=== PATIENT | female | born 1945 | race Caucasian/White ===

== ENCOUNTER 2017-01-24 14:28 | Emergency (ER) | payer OTHER ==
[~2017-01-24] VITALS: Wt 85.7 kg
[~2017-01-24 14:28] MED LIST: ADVAIR 250/501 EA INH; ALBUTEROL0.09 MG/A2 INH; CIPRO500 MG PO; DARVOCET N 1001 TAB PO; ENALAPRIL2.5 MG PO; NIACIN500 M1 PO; NORVASC5 MG PO; PRAVASTATIN SOD10 MG PO; PREDNISONE10 MG PO; PRILOSEC20 MG PO; PRILOSEC40 MG PO; REGLAN5 MG PO; SINGULAIR10 MG PO; TRAMADOL HCL50 MG PO; VIBRAMYCIN100 MG PO
[2017-01-24 14:54] VITALS: BP 150/83
[2017-01-24] MEDS ORDERED: HYDROCODONE BIT1 T11 PO (16:11)
== END 2017-01-24 16:12 | disposition home or self-care (01) ==
LOC: ED 14:28
DX: S83.91XA Sprain of unspecified site of right knee, initial encounter (principal); M19.90 Unspecified osteoarthritis, unspecified site; Z79.899 Other long term (current) drug therapy; X58.XXXA Exposure to other specified factors, initial encounter; Y93.89 Activity, other specified; Y92.9 Unspecified place or not applicable; Y99.9 Unspecified external cause status

== ENCOUNTER → 2017-01-26 | Outpatient (CLI) | payer OTHER ==
[~2017-01-26] MED LIST changes: +HYDROCODONE BIT1 T11 PO
[2017-01-26 16:51] LABS: BASO # 0.1 10*3/uL (0.0-0.1); BASO % 0.8 % (0.0-1.0); EOS # 0.3 10*3/uL (0.0-0.4); EOS % 3.6 % (1.0-4.0); HEMATOCRIT 37.6 % (37.0-47.0); HEMOGLOBIN 12.3 g/dl (12.0-16.0); LYMPH # 2.3 10*3/uL (1.3-4.4); LYMPH % 25.8 % (27.0-41.0); MEAN CELL VOLUME 91.7 fl (81.0-99.0); MEAN CORPUSCULAR HGB CONC 32.7 g/dl (33.0-37.0); MEAN PLATELET VOLUME 9.5 fl (9.6-12.3); MONO # 0.8 10*3/uL (0.1-1.0); MONO % 9.5 % (3.0-9.0); NEUT # 5.3 10*3/uL (2.3-7.9); NEUT % 59.8 % (47.0-73.0); PLATELET COUNT AUTOMATED 377 10*3/uL (130-400); WHITE BLOOD COUNT 8.9 10*3/uL (4.8-10.8)
== END | disposition home or self-care (01) ==
LOC: LAB 16:19
PROVIDERS: Orthopaedic Surgery
DX: M25.561 Pain in right knee (principal)

== ENCOUNTER → 2017-02-01 | Outpatient (CLI) | payer OTHER | END | disposition home or self-care (01) | LOC: LAB 14:39 | DX: K59.00 Constipation, unspecified (principal); K63.89 Other specified diseases of intestine; M16.0 Bilateral primary osteoarthritis of hip; M85.80 Other specified disorders of bone density and structure, unspecified site; M53.3 Sacrococcygeal disorders, not elsewhere classified ==

== ENCOUNTER → 2017-06-17 | Outpatient (CLI) | payer OTHER | END | disposition home or self-care (01) | LOC: MAMMO 06-10 13:00 | DX: Z12.31 Encounter for screening mammogram for malignant neoplasm of breast (principal) ==

== ENCOUNTER 2017-06-29 13:30 | Emergency (ER) | payer OTHER ==
[~2017-06-29] VITALS: Wt 81.6 kg
[2017-06-29 13:42] VITALS: BP 113/82
[2017-06-29] MEDS ORDERED: NAPROSYN500 MG PO (15:21)
== END 2017-06-29 15:00 | disposition home or self-care (01) ==
LOC: ED 13:30
DX: M19.012 Primary osteoarthritis, left shoulder (principal); Z79.899 Other long term (current) drug therapy

== ENCOUNTER → 2018-01-17 | Outpatient (CLI) | payer OTHER ==
[~2018-01-17] MED LIST changes: +NAPROSYN500 MG PO
[2018-01-17 12:37] LABS: BASO # 0.1 10*3/uL (0.0-0.1); EOS # 0.7 10*3/uL (0.0-0.4); EOS % 8.6 % (1.0-4.0); HEMATOCRIT 38.2 % (37.0-47.0); HEMOGLOBIN 12.3 g/dl (12.0-16.0); LYMPH # 2.3 10*3/uL (1.3-4.4); MEAN CELL VOLUME 95.5 fl (81.0-99.0); MEAN CORPUSCULAR HGB 30.8 pg (27.0-31.0); MEAN CORPUSCULAR HGB CONC 32.2 g/dl (33.0-37.0); MONO # 0.9 10*3/uL (0.1-1.0); MONO % 10.6 % (3.0-9.0); NEUT # 4.4 10*3/uL (2.3-7.9); NEUT % 52.6 % (47.0-73.0); PLATELET COUNT AUTOMATED 350 10*3/uL (130-400); RED CELL DISTRI WIDTH 13.8 % (0-14.5); WHITE BLOOD COUNT 8.4 10*3/uL (4.8-10.8)
[2018-01-17 12:57] LABS: ALBUMIN 3.5 gm/dl (3.1-4.5); ALKALINE PHOSPHATASE 111 U/L (45-117); BUN 9 mg/dl (7-24); CHLORIDE 107 mmol/L (98-107); CHOLESTEROL 171 mg/dL (<200); CREATININE 0.86 mg/dL (0.55-1.02); HDL CHOLESTEROL 50 mg/dl (40-60); LDL CHOLESTEROL 95 mg/dL (9-159); SGOT/AST 19 IU/L (3-35); SGPT/ALT 20 U/L (12-78); SODIUM 142 mmol/L (136-145); TOTAL PROTEIN 6.9 gm/dL (6.4-8.2); TRIGLYCERIDES 131 mg/dl (<150); VLDL CHOLESTEROL 26 mg/dL (6-40)
== END | disposition home or self-care (01) ==
LOC: LAB 11:51
PROVIDERS: Nurse Practitioner Family
DX: E78.4 Other hyperlipidemia (principal); I10 Essential (primary) hypertension

== ENCOUNTER → 2018-01-21 | Outpatient (CLI) | payer OTHER | END | disposition home or self-care (01) | LOC: MRI 13:27 | DX: M19.012 Primary osteoarthritis, left shoulder (principal); S46.912D Strain of unspecified muscle, fascia and tendon at shoulder and upper arm level, left arm, subsequent encounter; X58.XXXD Exposure to other specified factors, subsequent encounter ==

== ENCOUNTER → 2018-05-12 | Outpatient (CLI) | payer OTHER ==
[~2018-05-12] MED LIST changes: +ALBUTEROL2.5 MG/0.5 INH; -ENALAPRIL2.5 MG PO; +ENALAPRIL20 MG PO; +LEVAQUIN750 M1 PO; +NAPROXEN500 MG PO; +VITAMIN D-32000 UNIT PO
== END | disposition home or self-care (01) ==
LOC: RESCLI 14:55
DX: J44.9 Chronic obstructive pulmonary disease, unspecified (principal); I10 Essential (primary) hypertension; E78.00 Pure hypercholesterolemia, unspecified; E53.8 Deficiency of other specified B group vitamins; K21.9 Gastro-esophageal reflux disease without esophagitis; Z79.899 Other long term (current) drug therapy; Z79.82 Long term (current) use of aspirin; Z88.8 Allergy status to other drugs, medicaments and biological substances

== ENCOUNTER → 2018-06-10 | Outpatient (CLI) | payer OTHER ==
[~2018-06-10] MED LIST changes: -ALBUTEROL2.5 MG/0.5 INH; +ENALAPRIL2.5 MG PO; -ENALAPRIL20 MG PO; -LEVAQUIN750 M1 PO; -NAPROXEN500 MG PO; -VITAMIN D-32000 UNIT PO
== END ==
LOC: RESCLI 02:11
DX: I10 Essential (primary) hypertension (principal); E78.5 Hyperlipidemia, unspecified; E78.00 Pure hypercholesterolemia, unspecified; K21.9 Gastro-esophageal reflux disease without esophagitis; J44.9 Chronic obstructive pulmonary disease, unspecified

== ENCOUNTER → 2018-09-08 | Outpatient (CLI) | payer OTHER ==
[~2018-09-08] MED LIST changes: +ALBUTEROL2.5 MG/0.5 INH; -ENALAPRIL2.5 MG PO; +ENALAPRIL20 MG PO; +LEVAQUIN750 M1 PO; +NAPROXEN500 MG PO; +VITAMIN D-32000 UNIT PO
== END | disposition home or self-care (01) ==
LOC: RESCLI 08:26
DX: I10 Essential (primary) hypertension (principal); J44.1 Chronic obstructive pulmonary disease with (acute) exacerbation; R10.13 Epigastric pain; E78.5 Hyperlipidemia, unspecified; D69.6 Thrombocytopenia, unspecified; J32.0 Chronic maxillary sinusitis; R09.82 Postnasal drip; E55.9 Vitamin D deficiency, unspecified; Z79.82 Long term (current) use of aspirin; Z79.899 Other long term (current) drug therapy; Z88.8 Allergy status to other drugs, medicaments and biological substances

== ENCOUNTER → 2018-12-15 | Outpatient (CLI) | payer OTHER ==
[~2018-12-15] MED LIST changes: +DOXYCYCLINE100 M3 PO; +Flonase 0.05% 120 Me NAS; +GOOD NEIGHBOR L10 MG PO; +MUCINEX ER600 MG PO; +OMEPRAZOLE D/R20 MG PO; +OMEPRAZOLE20 M2 PO; +PERCOCET 5-3251 EACH PO; +PROAIR HFA8.5 GM INH; +VALTREX1000 MG PO; +VITAMIN B121000 MC1 PO; +VITAMIN D-32000 UNI1 PO; +ZANTAC 150150 MG PO; +ZOFRAN4 MG PO; +Zestril,Prinivi40 MG PO
== END | disposition home or self-care (01) ==
LOC: RESCLI 11:01
DX: I10 Essential (primary) hypertension (principal); J44.1 Chronic obstructive pulmonary disease with (acute) exacerbation; E78.5 Hyperlipidemia, unspecified; J01.90 Acute sinusitis, unspecified; K21.9 Gastro-esophageal reflux disease without esophagitis; Z79.899 Other long term (current) drug therapy; Z90.710 Acquired absence of both cervix and uterus; Z88.8 Allergy status to other drugs, medicaments and biological substances

== ENCOUNTER 2018-12-20 03:52 | Inpatient (IN) | payer OTHER ==
[2018-12-20] VITALS (10 sets, daily range): BP systolic 130–165; BP diastolic 51–109
[~2018-12-20] VITALS: Ht 157.5 cm; Wt 83.5 kg
--- NOTE | ~2018-12-20 | EKG ---
[place], [place] ELECTROCARDIOGRAM REPORT NAME: ELVIS GREEN UNIT #: [id number] ROOM: 503 DOCTOR: ESSENCE DRAFT REPORT BIRTHDATE: [birth year] [facility] Test Date: 2018-12-20 Test Time: 04:44:05 Pat Name: ELVIS GREEN Department: Room: 503 Gender: F Director Auto: : 1945 Requested By: LUKAS POLLARD Order Number: [id number] Reading MD: Mario Gupta MD Measurements Intervals [place] Rate: 98 P: 43 AR: 147 QRS: 29 QRSD: 89 T: 1 QT: 348 QTc: 445 Interpretive Statements Sinus rhythm Abnormal inferior Q waves Baseline wander in lead(s) V5 Compared to ECG 06/26/2018 15:24:55 Electronically Signed On 12-30-2018 9:58:55 PST by Mario Gupta MD CM:EKGRPT:ELECTROCARDIOGRAM REPORT [id number] LUKAS LUGO DRAFT REPORT LUKAS POLLARD DO
--- NOTE | ~2018-12-20 | CON ---
[place], [place] REPORT OF CONSULTATION NAME: ELVIS GREEN UNIT #: [id number] ROOM: 503 DOCTOR: BISMARK HUSSEIN MD BIRTHDATE: [birth year] DOS: 12/21/2018 REASON FOR CONSULTATION: For assessment of recurrent respiratory failure. HISTORY OF PRESENT ILLNESS: A 73-year-old white female known to me from the past as well. She has been admitted and treated in the hospital and discharged home on 12/14/2017. At that time, she has been managed for the acute exacerbation of chronic obstructive pulmonary disease as well as bronchial asthma. The patient was doing well and readmitted to the hospital in 12/20/2018. The patient has been reported with having increased shortness of breath. The patient is coughing, chest congestion which has started in the last couple of days. She was started having postnasal drainage as well, which started the current symptom. The patient denies any symptoms of fever or chills. The cough is noted only scant amount of sputum expectoration containing some blood this morning as she was coughing hard to expectorate sputum sent for the cultures. No symptoms of nausea. Denies any symptoms of acute chest pain at this time. REVIEW OF SYSTEMS: CONSTITUTIONAL: Fatigue and tiredness noted. Denies symptoms of fever or chills. EYES: Denies burning, redness, or tenderness. EARS, NOSE AND THROAT: Denies sore throat, hoarseness, otalgia, postnasal drip, and epistaxis. CARDIOVASCULAR: Denies anginal pain, edema. Pain of the lower extremities. GASTROINTESTINAL: No dysphagia, nausea, vomiting, diarrhea, abdominal pain, hematemesis, melena, or hematochezia. SKIN: Denies abnormal lesions or rashes. CENTRAL NERVOUS SYSTEM: No dizziness, headache, diplopia or syncopal episodes. Remaining systems were reviewed. They were noted all negative. PAST MEDICAL HISTORY: The patient was known with a history of: 1. Bronchial asthma. 2. Chronic obstructive pulmonary disease. 3. Gastroesophageal reflux. 4. Mild obesity. 5. Hyperlipidemia. 6. Vitamin D deficiency. 7. Degenerative arthritis of the left shoulder. PAST SURGICAL HISTORY: 1. Noted scattered extraction with lens implantation. 2. Complete hysterectomy. SOCIAL HISTORY: The patient lives at home. Denies history of alcohol use, illicit drug use. She denied any tobacco use. She is and has 4 children. FAMILY HISTORY: The patient's father of complications of bronchial asthma, [place], [place] REPORT OF CONSULTATION NAME: ELVIS GREEN UNIT #: [id number] ROOM: [facility] DOCTOR: BISMARK HUSSEIN MD BIRTHDATE: [birth year] myocardial infarction. Mother with complications of ovarian cancer. DRUG ALLERGY HISTORY: The patient was noted as no known drug allergies. PHYSICAL EXAMINATION: GENERAL: A 73-year-old female patient currently sitting on the bed without any acute distress this morning of assessment. The patient's height were recorded by the nursing staff at the current admission, 5 feet 2 inches, weight of 184 pounds. VITAL SIGNS: For the patient which has been recorded shows a normal temperature in the last 24 hours. The respiratory rate 18-20, heart rate 92-112, blood pressure 139/109-137/63. Pulse oxygen saturation noted on 3 liters nasal cannula 95% saturation. HEENT: Head was atraumatic. Eyes nonicterus. NECK: Supple. CARDIOVASCULAR: S1, S2 is audible. LUNGS: The patient was noted without any wheezing. Crackles are noted. Diminished breath sounds in the left lower lung base. ABDOMEN: Soft, nontender. Bowel sounds present. EXTREMITIES: The patient noted without any acute edema. MUSCULOSKELETAL: No joint deformities. CENTRAL NERVOUS SYSTEM: Cranial nerves 2-12 intact. LABORATORY DATA: CBC of 12/20/2018 on admission, WBC count 20.1, hemoglobin and hematocrit normal, platelet count normal. A 75% neutrophils. Arterial blood gas that was done yesterday 6 liter nasal cannula, pH of 7.42, pCO2 of 31.3, pO2 of 70.3. Lactic acid 2.3, variably elevated later on. CMP that was done this morning, normal BUN and creatinine. Glucose 119. The CMP that was done yesterday was noted as BUN 21, creatinine 1.10. The chest x-ray noted suspicion of the acute pneumonia. Chest x-ray, I ordered for the patient as a PA lateral view deflation further assessment did confirm evidence of acute pneumonic infiltration noted in the left lower lobe noted better in the lateral view for this patient and then PA very symmetrical. IMPRESSION: 1. The patient will be currently admitted to the hospital noted with evidence of acute pneumonia involving the left lower lobe may be related to aspiration. With consideration of gram-positive, gram-negative organism because of recent hospitalization management earlier part of this month. 2. The patient with acute exacerbation of chronic obstructive pulmonary disease and bronchial asthma. 3. Chronic moderate obesity as well. PLAN OF MANAGEMENT: At this time, the patient has been getting Levaquin, vancomycin and IV Zosyn that will be continued for the patient until the organism would be for de-escalation of antibiotic, monitoring pneumonia for assessment radiologically as well as a progression. Supportive therapy, plan of management. All the urine for Legionella antigen and strep antigen as well. Continue IV steroids for the patient. The dose will be decreased to 40 mg b.i.d. today since the wheezing has been noted decreased. Other plan of therapy [place], [place] REPORT OF CONSULTATION NAME: ELVIS GREEN UNIT #: [id number] ROOM: [facility] DOCTOR: BISMARK HUSSEIN MD BIRTHDATE: [birth year] care plan and management plan. The patient to be changed based on progression of the illness. Usual care, other supportive plan of management, care plan and therapies. BISMARK WILLSON MD CM:CONSTR:REPORT OF CONSULTATION 1254 12/29/18 0854 interface
--- NOTE | ~2018-12-20 | PR ---
[place], [place] PROGRESS NOTE NAME: ELVIS GREEN UNIT #: [id number] ROOM: 503 DOCTOR: ANAMIKA HORTON MD,BISMARK BIRTHDATE: [birth year] DOS: 12/22/2018 PULMONARY PROGRESS NOTE SUBJECTIVE: The patient has been noted comfortable at this time, without any acute distress this morning of assessment. Shortness of breath reported to be decreased. The patient does have mild cough without any sputum expectoration. Denies symptoms of fever or chills. Denies symptoms of hemoptysis. Denies symptoms of pain or edema of the lower extremities. OBJECTIVE: VITAL SIGNS: Which were recorded show normal temperature, respiratory rate of 20, heart rate of 94, blood pressure 122/64. Pulse oxygen saturation recorded as 92% at rest on room air. HEENT: Examination shows head is atraumatic. Eyes nonicterus. NECK: Supple. CARDIOVASCULAR: S1 and S2 audible. LUNGS: Noted without any wheezing. Breaths are noted mildly diminished bilaterally with mild crackles in the left lower lung base today. ABDOMEN: Soft and obese. EXTREMITIES: Without acute edema. IMPRESSION: 1. Acute left lower lobe pneumonia, currently treated with antibiotics. Influenza A and B nasal washing antigens were negative. 2. CBC noted leukocytosis, WBC count 20.7. PLAN OF MANAGEMENT: Continue the antibiotics. Continuation of bronchodilators with oxygen supplementation to maintain pulse ox 92% or greater. Repeat chest x-ray in the morning is ordered to assess the progression of pneumonia radiologically as well. Other additional treatment changes will be made based on progression of the illness. BISMARK WILLSON MD CM:PNTRANS [id number] BISMARK HORTON MD 12/29/18 0856 interface
[~2018-12-20 03:52] MED LIST changes: -GOOD NEIGHBOR L10 MG PO; -MUCINEX ER600 MG PO; -OMEPRAZOLE20 M2 PO; -PERCOCET 5-3251 EACH PO; -VALTREX1000 MG PO; -VITAMIN B121000 MC1 PO; -ZOFRAN4 MG PO
[2018-12-20 04:38] LABS: HEMATOCRIT 41.2 % (37.0-47.0); HEMOGLOBIN 13.2 g/dl (12.0-16.0); MEAN CELL VOLUME 92.4 fl (81.0-99.0); MEAN CORPUSCULAR HGB 29.6 pg (27.0-31.0); MEAN PLATELET VOLUME 9.9 fl (9.6-12.3); PLATELET COUNT AUTOMATED 512 10*3/uL (130-400); RED BLOOD COUNT 4.46 10*6/uL (4.10-5.10); RED CELL DISTRI WIDTH 14.9 % (0-14.5); WHITE BLOOD COUNT 20.1 10*3/uL (4.8-10.8)
[2018-12-20 05:00] LABS: ALBUMIN 3.3 gm/dl (3.1-4.5); ALKALINE PHOSPHATASE 126 U/L (45-117); BUN 21 mg/dl (7-24); CHLORIDE 103 mmol/L (98-107); SGOT/AST 16 IU/L (3-35); SGPT/ALT 26 U/L (12-78); SODIUM 137 mmol/L (136-145); TOTAL PROTEIN 6.9 gm/dL (6.4-8.2)
--- NOTE | 2018-12-20 05:01 | NUR ---
PT NOW SPEAKING IN SHORT SENTENCES PT ONLY USING 1 OR 2 WORDS UPON ARRIVAL, PT STATES SHE IS FEELING A "LITTLE BIT BETTER" BUT IS STILL HAVING A "HARD TIME BREATHING" PT REMAINS ON O2 AT 6LPM NC PULSE OX NOW 93% BED IN LOWEST POSITION RAILS UP X 2 CALL JARAMILLO IN REACH AT BEDSIDE WILL CONTINUE TO MONITOR
--- NOTE | 2018-12-20 05:04 | NUR ---
PT STATES SHE DOES NOT HAVE MED LIST WITH HER, STATES ALL MEDS ARE FILLED BY [facility]
[2018-12-20 05:06] LABS: TROPONIN I < 0.015 ng/ml (<0.045)
[2018-12-20 05:17] LABS: PLATELET SUFFICIENCY HIGH (NORMAL); TOTAL CELLS COUNTED 100 #CELLS
--- NOTE | 2018-12-20 05:40 | NUR ---
0539 HR VITALS AFTER MINIMAL EXTERTION FROM BED TO WHEELCHAIR TO COMMODE TO WHEELCHAIR TO BED WHILE MAINTAINING O2 AT 6LPM BY NC
[2018-12-20 06:22] LABS: ABG BASE EXCESS -3.2 mmol/L (-2.0-2.0); ABG O2 SATURATION 94.2 % (95-97); ARTERIAL BLOOD GAS PCO2 31.3 mmHg (35-45); ARTERIAL BLOOD GAS PH 7.42 (7.35-7.45); ARTERIAL BLOOD GAS PO2 70.3 mmHg (80-90)
--- NOTE | 2018-12-20 07:17 | NUR ---
REPORT RECEIVED AT 0710 FROM MAINOR VARGAS. THIS PT IS AWAKE AND ALERT. HER RESPIRATIONS ARE MILDLY LABORED. COLOR IS FAIR,SKIN W/D. IV FLUID IS INFUSING. SHE IS ADMITTED,WAITING TO GIVE REPORT AND TRANSPORT PT TO [address] BED LIZA VARGAS
--- NOTE | 2018-12-20 08:00 | NUR ---
A 73, admitted to , under the services of MENA Spence DO with a diagnosis of COPD, PNEUMONITIS. Chief complaint is SOB. Patient arrived via bed from ER. Monitor applied. Initial assessment completed. Vital signs taken and recorded. MENA SPENCE DO notified of admission to the unit. Orders received. See assessment for past medical history, medications and allergies. Patient and/or family oriented to unit. [facility] visitation policy reviewed. Clothing/patient valuable form completed. DARIAN CHAU
--- NOTE | 2018-12-20 09:10 | NUR ---
DR BARRETT NOTIFIED OF LACTIC ACID 4.0 NO NEW ORDERS
[2018-12-20] MEDS ORDERED: OMEPRAZOLE20 M2 PO (09:22)
[2018-12-20] MEDS ORDERED: NIACIN500 M1 PO (09:23)
[2018-12-20] MEDS ORDERED: VITAMIN B121000 MC1 PO (09:25)
--- NOTE | 2018-12-20 09:38 | NUR ---
C/O RIB PAIN DURING COUGHING OF 10. TYLENOL GIVEN AT THIS TIME. WILL CONT TO MONITOR. CALL LIGHT IN REACH.
--- NOTE | 2018-12-20 10:29 | NUR ---
MED REC UPDATED VIA PT RECALL AND LIST FROM PREVIOUS DISCHARGE.
--- NOTE | 2018-12-20 10:54 | NUR ---
PHYSICIAN WAS NOTIFIED OF DR. WILLSON CONSULT. RESPONSE OF NOTIFICATION WAS GET PA LATERAL CXR STAT AND CALL BACK WITH RESULTS. DARIAN CHAU
--- NOTE | 2018-12-20 12:56 | NUR ---
SPOKE TO DR WILLSON REGARDING RESULTS OF CXR. NEW ORDERS RECEIVED.
--- NOTE | 2018-12-20 15:25 | NUR ---
Nursing screen received and chart review completed. Patient was recently hospitalized 12/14/18 and returned home with no therapy needs. She returns to the hospital w/SOB. If patient should have a decline in ADLs or safety in mobility then refer to Occupational Therapy. Thank you. Deangelo Gillette OTR/L
--- NOTE | 2018-12-20 19:20 | NUR ---
REPORT OBTAINED FROM DAY SHIFT RN. INITIAL ASSESSMENT COMPLETES - SEE ASSESSMENT SCREEN. PT IS RESTING IN BED AT THIS TIME WITH NO COMPLAINTS. SHE IS SINUS TACHY ON THE MONITOR WITH A HEART RATE IN THE LOW 100'S. RESPIRATIONS ARE EASY AND NONLABORED ON 3L NC. SHE DENIES SOB AT REST AND STATES IT DOES INCREASE WITH EXERTION. BED IS LOCKED AND IN THE LOWEST POSITION, CALL LIGHT IS WITHIN REACH. WILL CONTINUE TO MONITOR PT
--- NOTE | 2018-12-20 20:03 | NUR ---
PT REQUESTED AND RECIEVED PRN ORDER FOR TYLENOL FOR COMPLAINTS OF A HEADACHE. WILL MONITOR FOR EFFECTIVENESS OF MEDICATION.
--- NOTE | 2018-12-20 21:30 | NUR ---
TYLENOL INEFFECTIVE PER PT. DR. BERNAL NOTIFIED AND STATES SHE WILL PUT IN SOMETHING ELSE FOR HER
--- NOTE | 2018-12-20 21:31 | NUR ---
ONE TIME ORDER FOR MOTRIN RECIEVED FOR C/O HEADACHE. WILL MONITOR FOR EFFECTIVENESS OF MEDICATION.
[2018-12-21] VITALS: BP 125/69
--- NOTE | 2018-12-21 04:10 | NUR ---
PT IS ASLEEP IN BED AT THIS TIME. THERE ARE NO OBVIOUS S/S OF PAIN OR DISCOMFORT. RESPIRATIONS ARE EASY AND NONLABORED ON 3L NC. SHE IS NSR ON THE MONITOR WITH A HEART RATE IN THE 90'S. BED IS LOCKED AND IN THE LOWEST POSITION, CALL LIGHT IS WITHIN REACH. WILL CONTINUE TO MONITOR.
[2018-12-21 06:17] LABS: HEMATOCRIT 37.4 % (37.0-47.0); HEMOGLOBIN 11.9 g/dl (12.0-16.0); MEAN CELL VOLUME 93.5 fl (81.0-99.0); MEAN CORPUSCULAR HGB 29.8 pg (27.0-31.0); MEAN CORPUSCULAR HGB CONC 31.8 g/dl (33.0-37.0); MEAN PLATELET VOLUME 9.7 fl (9.6-12.3); PLATELET COUNT AUTOMATED 424 10*3/uL (130-400); RED CELL DISTRI WIDTH 15.1 % (0-14.5); WHITE BLOOD COUNT 24.5 10*3/uL (4.8-10.8)
[2018-12-21 06:53] LABS: ALBUMIN 2.8 gm/dl (3.1-4.5); ALKALINE PHOSPHATASE 93 U/L (45-117); BUN 20 mg/dl (7-24); CHLORIDE 111 mmol/L (98-107); CREATININE 0.84 mg/dL (0.55-1.02); PHOSPHOROUS 2.7 mg/dL (2.5-4.9); POTASSIUM 3.8 mmol/L (3.5-5.1); SGOT/AST 13 IU/L (3-35); SGPT/ALT 23 U/L (12-78); SODIUM 143 mmol/L (136-145); TOTAL PROTEIN 6.1 gm/dL (6.4-8.2)
[2018-12-21 07:41] LABS: TOTAL CELLS COUNTED 100 #CELLS
[2018-12-21 07:42] LABS: PLATELET SUFFICIENCY HIGH (NORMAL)
[2018-12-21 08:00] VITALS: BP 120/66; BP 130/70
[2018-12-21 08:25] LABS: VITAMIN D, 25-HYDROXY 27.6 ng/mL (30-100)
--- NOTE | 2018-12-21 10:38 | NUR ---
Equipment Services Associate in to talk to patient. Patient states lives at HOME with AND SON. There are 20 steps to get into the home. Physician: [facility] Pharmacy: [facility] [place] health services: NONE Patient's level of ADLs: INDEPENDENT Patient has working utilities: YES DME: NONE Follow-up physician's appointment after d/c: WILL BE MADE BY HOSPITALIST NURSE DIRECTOR ON DISCHARGE Does patient want to access PORTAL?: NO Discharge plan PT STATES SHE LIVES WITH HER AND GROWN SON AT HOME. STATES HER OTHER GROWN CHILDREN LIVE NEAR BY. DENIES ANY NEEDS AT HOME AFTER DISCHARGE. STATES SHE WILL HAVE A RIDE HOME. WILL CONTINUE TO FOLLOW.. SHOBHA MIGUEL
[2018-12-21 12:00] VITALS: BP 127/68
[2018-12-21 16:00] VITALS: BP 99/56
[2018-12-21 20:00] VITALS: BP 118/51
--- NOTE | 2018-12-21 21:10 | NUR ---
MEDICATED WITH RESTORIL AND NORCO PER PRN ORDERS FOR C/O SHOULDER PAIN AND INSOMNIA.
[2018-12-22] VITALS: BP 134/54
[2018-12-22 06:23] LABS: HEMATOCRIT 34.7 % (37.0-47.0); HEMOGLOBIN 10.9 g/dl (12.0-16.0); MEAN CORPUSCULAR HGB 29.5 pg (27.0-31.0); MEAN CORPUSCULAR HGB CONC 31.4 g/dl (33.0-37.0); MEAN PLATELET VOLUME 9.7 fl (9.6-12.3); PLATELET COUNT AUTOMATED 391 10*3/uL (130-400); RED BLOOD COUNT 3.69 10*6/uL (4.10-5.10); RED CELL DISTRI WIDTH 15.3 % (0-14.5); WHITE BLOOD COUNT 20.7 10*3/uL (4.8-10.8)
[2018-12-22 06:49] LABS: BUN 21 mg/dl (7-24); CHLORIDE 110 mmol/L (98-107); CREATININE 0.85 mg/dL (0.55-1.02); POTASSIUM 3.7 mmol/L (3.5-5.1); SODIUM 143 mmol/L (136-145)
[2018-12-22 07:41] LABS: PLATELET SUFFICIENCY NORMAL (NORMAL); TOTAL CELLS COUNTED 100 #CELLS
--- NOTE | 2018-12-22 07:43 | NUR ---
24 HR CHART CHECK COMPLETE
[2018-12-22 08:00] VITALS: BP 122/64
--- NOTE | 2018-12-22 11:32 | NUR ---
PT CONTINUES TO DENY HOME NEEDS. WILL CONTINUE TO FOLLOW.
[2018-12-22 12:00] VITALS: BP 140/66
[2018-12-22 16:00] VITALS: BP 128/68
--- NOTE | 2018-12-22 19:30 | NUR ---
UPON BEDSIDE REPORT, AWAKE AND VISITING WITH FAMILY. NO DISTRESS NOTED. NO VOICED COMPLAINTS
[2018-12-22 20:00] VITALS: BP 156/78
--- NOTE | 2018-12-22 20:30 | NUR ---
24 HR chart check completed.
--- NOTE | 2018-12-22 21:00 | NUR ---
SITTING AT BEDSIDE WITH NO DISTRESS NOTED. RESPIRATIONS EASY. LUNGS DIMINISHED WITH LEFT SIDED PB CRACKLES. PULSE OX 94% RA. INFREQUENT COUGH. +2 NON-PITTING BLE EDEMA. OFFERED AND EDUCATED REGARDING TEDS, DECLINED. CALL LIGHT WITHIN REACH. NO VOICED COMPLAINTS
--- NOTE | 2018-12-22 22:55 | NUR ---
REQUESTED AND RECEIVED NORCO PER PRN ORDER FOR COMPLAINTS OF LEFT SHOULDER PAIN RATING A 6. ALSO MEDICATED WITH RESTORIL TO ASSIST WITH SLEEP. CALL LIGHT WITHIN REACH. WILL MONITOR FOR EFFECTIVENESS
[2018-12-23] VITALS: BP 123/60
--- NOTE | 2018-12-23 | NUR ---
EARLIER MEDS APPEAR EFFECTIVE. SLEEPING. NO DISTRESS NOTED. RESPIRATIONS EASY. VSS. CALL LIGHT WITHIN REACH
--- NOTE | 2018-12-23 06:00 | NUR ---
RESTED THROUGHOUT NIGHT WITH NO DISTRESS NOTED. RESPIRATIONS EASY. CALL LIGHT WITHIN REACH. NO VOICED COMPLAINTS THIS SHIFT
[2018-12-23 06:01] LABS: HEMATOCRIT 35.6 % (37.0-47.0); MEAN CELL VOLUME 93.4 fl (81.0-99.0); MEAN CORPUSCULAR HGB 28.9 pg (27.0-31.0); MEAN CORPUSCULAR HGB CONC 30.9 g/dl (33.0-37.0); MEAN PLATELET VOLUME 9.8 fl (9.6-12.3); PLATELET COUNT AUTOMATED 384 10*3/uL (130-400); RED BLOOD COUNT 3.81 10*6/uL (4.10-5.10); RED CELL DISTRI WIDTH 15.4 % (0-14.5); WHITE BLOOD COUNT 17.4 10*3/uL (4.8-10.8)
[2018-12-23 06:08] LABS: BUN 23 mg/dl (7-24); CHLORIDE 110 mmol/L (98-107); CREATININE 0.86 mg/dL (0.55-1.02); POTASSIUM 3.8 mmol/L (3.5-5.1); SODIUM 142 mmol/L (136-145)
[2018-12-23 06:57] LABS: TOTAL CELLS COUNTED 100 #CELLS
[2018-12-23 06:58] LABS: PLATELET SUFFICIENCY NORMAL (NORMAL)
[2018-12-23 08:00] VITALS: BP 122/98
--- NOTE | 2018-12-23 08:00 | NUR ---
Patient resting quietly with no c/o discomfort. Respirations easy and regular. Vital signs stable. No overt distress. LUZ CONSTANTINO R
[2018-12-23] MEDS ORDERED: PREDNISONE10 MG PO (10:13)
[2018-12-23] MEDS ORDERED: GOOD NEIGHBOR L10 MG PO (10:13)
[2018-12-23] MEDS ORDERED: MUCINEX ER600 MG PO (10:13)
[2018-12-23] MEDS ORDERED: LEVAQUIN750 M1 PO (10:13)
--- NOTE | 2018-12-23 11:41 | NUR ---
Discharge instructions reviewed with patient/family. Patient receptive and verbalizes understanding. Follow-up care arranged. Written instructions given to patient/family. LUZ CONSTANTINO
--- NOTE | 2018-12-23 15:26 | NUR ---
PHYSICAL THERAPY Nursing screen received. PAtient is discharged. Roya Briones,PT
[2018-12-25 00:05] LABS: ADENOVIRUS Negative (Negative); INFLUENZA A Negative (Negative); INFLUENZA B Negative (Negative); METAPNEUMOVIRUS Negative (Negative); PARAINFLUENZA 1 Negative (Negative); PARAINFLUENZA 2 Negative (Negative); PARAINFLUENZA 3 Negative (Negative); RHINOVIRUS Negative (Negative); RSV A Negative (Negative); RSV B Negative (Negative)
[2019-04-26] MEDS ORDERED: MUCINEX ER600 MG PO (20:17)
[2019-04-29] MEDS ORDERED: PERCOCET 5-3251 EACH PO (11:08)
[2019-04-29] MEDS ORDERED: VALTREX1000 MG PO (11:08)
[2019-04-29] MEDS ORDERED: ZOFRAN4 MG PO (11:20)
== END 2018-12-23 11:56 | disposition home or self-care (01) | DRG 871 ==
LOC: ED 03:52 → 5E 06:28 → EDHOLD 06:28 → 5E 07:00
PROVIDERS: Emergency Medicine; Internal Medicine; Internal Medicine Critical Care Medicine; ADMIT Internal Medicine
DX: A41.9 Sepsis, unspecified organism (principal); N17.0 Acute kidney failure with tubular necrosis; E44.1 Mild protein-calorie malnutrition; J44.0 Chronic obstructive pulmonary disease with (acute) lower respiratory infection; J44.1 Chronic obstructive pulmonary disease with (acute) exacerbation; J45.901 Unspecified asthma with (acute) exacerbation; I10 Essential (primary) hypertension; M19.012 Primary osteoarthritis, left shoulder; E78.5 Hyperlipidemia, unspecified; E66.9 Obesity, unspecified; K21.9 Gastro-esophageal reflux disease without esophagitis; E55.9 Vitamin D deficiency, unspecified; R65.20 Severe sepsis without septic shock; R09.82 Postnasal drip; D47.3 Essential (hemorrhagic) thrombocythemia; Z87.01 Personal history of pneumonia (recurrent); Z90.710 Acquired absence of both cervix and uterus; Z98.51 Tubal ligation status; Z87.891 Personal history of nicotine dependence; Z82.49 Family history of ischemic heart disease and other diseases of the circulatory system; Z80.41 Family history of malignant neoplasm of ovary; Z82.5 Family history of asthma and other chronic lower respiratory diseases; Z79.899 Other long term (current) drug therapy; Z68.32 Body mass index [BMI] 32.0-32.9, adult

== ENCOUNTER → 2019-03-29 | Outpatient (CLI) | payer OTHER ==
[~2019-03-29] MED LIST changes: +GOOD NEIGHBOR L10 MG PO; +MUCINEX ER600 MG PO; +OMEPRAZOLE20 M2 PO; +PERCOCET 5-3251 EACH PO; +VALTREX1000 MG PO; +VITAMIN B121000 MC1 PO; +ZOFRAN4 MG PO
== END | disposition home or self-care (01) ==
LOC: RESCLI 00:47
DX: I10 Essential (primary) hypertension (principal); E78.2 Mixed hyperlipidemia; J44.1 Chronic obstructive pulmonary disease with (acute) exacerbation; R30.0 Dysuria; E55.9 Vitamin D deficiency, unspecified; K21.9 Gastro-esophageal reflux disease without esophagitis

== ENCOUNTER → 2019-06-21 | Outpatient (CLI) | payer OTHER | END | disposition home or self-care (01) | LOC: RESCLI 08:16 | DX: I10 Essential (primary) hypertension (principal); E78.2 Mixed hyperlipidemia; J44.1 Chronic obstructive pulmonary disease with (acute) exacerbation; E55.9 Vitamin D deficiency, unspecified; K21.9 Gastro-esophageal reflux disease without esophagitis ==

== ENCOUNTER → 2019-08-09 | Outpatient (CLI) | payer OTHER | END | disposition home or self-care (01) | LOC: RAD 16:20 | DX: J44.1 Chronic obstructive pulmonary disease with (acute) exacerbation (principal) ==

== ENCOUNTER → 2019-09-01 | Outpatient (CLI) | payer OTHER | END | disposition home or self-care (01) | LOC: RESCLI 00:21 | DX: I10 Essential (primary) hypertension (principal); E78.2 Mixed hyperlipidemia; K21.9 Gastro-esophageal reflux disease without esophagitis; E55.9 Vitamin D deficiency, unspecified; J44.1 Chronic obstructive pulmonary disease with (acute) exacerbation; G25.81 Restless legs syndrome; J45.909 Unspecified asthma, uncomplicated; E78.5 Hyperlipidemia, unspecified; Z79.899 Other long term (current) drug therapy ==

== ENCOUNTER → 2019-10-04 | Outpatient (CLI) | payer OTHER | END | disposition home or self-care (01) | LOC: MAMMO 14:17 | DX: Z12.31 Encounter for screening mammogram for malignant neoplasm of breast (principal) ==

== ENCOUNTER 2019-12-01 13:57 | Emergency (ER) | payer OTHER ==
[~2019-12-01] VITALS: Ht 157.4 cm; Wt 79.4 kg
[2019-12-01 14:07] VITALS: BP 132/58
[2019-12-01] MEDS ORDERED: NORCO 5-325 TA1 EACH PO (16:44)
== END 2019-12-01 16:41 | disposition home or self-care (01) ==
LOC: ED 13:57
DX: S42.301A Unspecified fracture of shaft of humerus, right arm, initial encounter for closed fracture (principal); M54.2 Cervicalgia; Z79.899 Other long term (current) drug therapy; Z87.891 Personal history of nicotine dependence; X58.XXXA Exposure to other specified factors, initial encounter; Y93.89 Activity, other specified; Y92.89 Other specified places as the place of occurrence of the external cause; Y99.8 Other external cause status

== ENCOUNTER → 2019-12-13 | Outpatient (CLI) | payer OTHER ==
[~2019-12-13] MED LIST changes: +NORCO 5-325 TA1 EACH PO
== END | disposition home or self-care (01) ==
LOC: RESCLI 00:25
DX: E03.9 Hypothyroidism, unspecified (principal); J44.1 Chronic obstructive pulmonary disease with (acute) exacerbation; K21.9 Gastro-esophageal reflux disease without esophagitis; E78.5 Hyperlipidemia, unspecified; I10 Essential (primary) hypertension; G25.81 Restless legs syndrome; E55.9 Vitamin D deficiency, unspecified; Z79.899 Other long term (current) drug therapy; Z90.710 Acquired absence of both cervix and uterus

== ENCOUNTER → 2020-05-29 | Outpatient (CLI) | payer OTHER | END | disposition home or self-care (01) | LOC: RESCLI 01:03 | DX: J45.909 Unspecified asthma, uncomplicated (principal); I10 Essential (primary) hypertension; J44.9 Chronic obstructive pulmonary disease, unspecified; E78.5 Hyperlipidemia, unspecified; K21.9 Gastro-esophageal reflux disease without esophagitis; E55.9 Vitamin D deficiency, unspecified; E03.9 Hypothyroidism, unspecified; Z79.899 Other long term (current) drug therapy; Z90.710 Acquired absence of both cervix and uterus; Z98.890 Other specified postprocedural states; Z91.048 Other nonmedicinal substance allergy status ==

== ENCOUNTER → 2020-08-07 | Outpatient (CLI) | payer OTHER | END | disposition home or self-care (01) | LOC: RESCLI 01:09 | PROVIDERS: ATTEND Internal Medicine Nephrology | DX: J30.9 Allergic rhinitis, unspecified (principal); I10 Essential (primary) hypertension; J44.9 Chronic obstructive pulmonary disease, unspecified; E78.5 Hyperlipidemia, unspecified; K21.9 Gastro-esophageal reflux disease without esophagitis; E55.9 Vitamin D deficiency, unspecified; E03.9 Hypothyroidism, unspecified; Z79.899 Other long term (current) drug therapy; Z90.710 Acquired absence of both cervix and uterus; Z98.51 Tubal ligation status ==

== ENCOUNTER → 2020-08-22 | Outpatient (CLI) | payer OTHER ==
[~2020-08-22] MED LIST changes: +ATARAX,VISTARIL50 MG PO; +DILTIAZEM HCL90 MG PO; +ELIQUIS5 M1 PO; +FLUCONAZOLE100 MG PO; +HYDROCODONE/HO473 ML PO; +MONTELUKAST SOD10 MG PO; +Synthroid,Levo25 MCG PO
== END | disposition home or self-care (01) ==
LOC: COVID19 00:29
PROVIDERS: ATTEND Nurse Practitioner Family
DX: R05 Cough (principal); R09.81 Nasal congestion; R06.02 Shortness of breath; E78.5 Hyperlipidemia, unspecified; Z20.828 Contact with and (suspected) exposure to other viral communicable diseases; Z87.891 Personal history of nicotine dependence

== ENCOUNTER → 2020-10-07 | Outpatient (CLI) | payer OTHER | END | disposition home or self-care (01) | LOC: COVID19 12:27 | PROVIDERS: ATTEND Nurse Practitioner Family | DX: R05 Cough (principal); R09.81 Nasal congestion; R06.02 Shortness of breath; E78.5 Hyperlipidemia, unspecified; Z20.828 Contact with and (suspected) exposure to other viral communicable diseases ==

== ENCOUNTER 2020-10-19 16:15 | Inpatient (IN) | payer OTHER ==
[~2020-10-19] VITALS: Ht 157.4 cm; Wt 75.5 kg
[~2020-10-19 16:15] MED LIST changes: -ATARAX,VISTARIL50 MG PO; -DILTIAZEM HCL90 MG PO; -ELIQUIS5 M1 PO; -FLUCONAZOLE100 MG PO; -HYDROCODONE/HO473 ML PO; -MONTELUKAST SOD10 MG PO; -Synthroid,Levo25 MCG PO
[2020-10-19 16:22] VITALS: BP 110/50
[2020-10-19 17:12] LABS: BASO % 0.1 % (0.0-1.0); EOS % 0.1 % (1.0-4.0); HEMATOCRIT 43.3 % (37.0-47.0); LYMPH # 1.6 10*3/uL (1.3-4.4); LYMPH % 21.4 % (27.0-41.0); MEAN CELL VOLUME 92.3 fl (81.0-99.0); MEAN CORPUSCULAR HGB 29.2 pg (27.0-31.0); MEAN CORPUSCULAR HGB CONC 31.6 g/dl (33.0-37.0); MEAN PLATELET VOLUME 9.7 fl (9.6-12.3); MONO # 0.6 10*3/uL (0.1-1.0); MONO % 7.8 % (3.0-9.0); NEUT # 5.3 10*3/uL (2.3-7.9); NEUT % 70.3 % (47.0-73.0); PLATELET COUNT AUTOMATED 255 10*3/uL (130-400); RED BLOOD COUNT 4.69 10*6/uL (4.10-5.10); RED CELL DISTRI WIDTH 14.1 % (0-14.5); WHITE BLOOD COUNT 7.6 10*3/uL (4.8-10.8)
[2020-10-19 17:13] LABS: ABG BASE EXCESS 3.1 mmol/L (-2.0-2.0); ARTERIAL BLOOD GAS PH 7.472 (7.35-7.45)
[2020-10-19 17:24] LABS: ACT PARTIAL THROMBO TIME 27.8 SECONDS (20.0-32.1); INTERNATIONAL NORM RATIO 0.9 (2.0-3.5)
[2020-10-19 17:28] LABS: ALBUMIN 2.5 gm/dl (3.1-4.5); ALKALINE PHOSPHATASE 99 U/L (45-117); BUN 10 mg/dl (7-24); CHLORIDE 98 mmol/L (98-107); CPK 56 U/L (26-192); CREATININE 0.97 mg/dL (0.55-1.02); LDH 313 U/L (84-246); SGOT/AST 29 IU/L (3-35); SGPT/ALT 16 U/L (12-78); SODIUM 134 mmol/L (136-145); TOTAL PROTEIN 6.2 gm/dL (6.4-8.2)
[2020-10-19 17:35] LABS: TROPONIN I < 0.015 ng/ml (<0.045)
[2020-10-19 18:05] VITALS: BP 113/68
--- NOTE | 2020-10-19 18:48 | NUR ---
NOTIFIED OF CONSULT. NEW ORDERS REC'D.
--- NOTE | 2020-10-19 19:03 | NUR ---
CONSULT CALLED TO ANSWERING SERVICE.
[2020-10-19] MEDS ORDERED: ADVAIR 250/501 EA INH (19:52)
[2020-10-19] MEDS ORDERED: Synthroid,Levo25 MCG PO (19:54)
[2020-10-19] MEDS ORDERED: MONTELUKAST SOD10 MG PO (19:56)
--- NOTE | 2020-10-19 19:56 | NUR ---
ATIVAN EFFECTIVE. PT ABLE TO TOLERATE BIPAP NOW. WILL CONTINUE TO MONITOR. CALL LIGHT IN REACH.
[2020-10-19] MEDS ORDERED: HYDROCODONE/HO473 ML PO (19:58)
--- NOTE | 2020-10-19 19:59 | NUR ---
MED REC UPDATED VIA LIST FROM PHARMACY. NOTIFIED.
[2020-10-19 20:00] VITALS: BP 110/90
--- NOTE | 2020-10-19 22:11 | NUR ---
PATIENT REQUESTED TO COME OFF BIPAP, PLACED ON 3 L/M NC HR 96 SPO2 92%.
[2020-10-19 22:14] LABS: ABG BASE EXCESS 5.5 mmol/L (-2.0-2.0); ARTERIAL BLOOD GAS PH 7.484 (7.35-7.45)
[2020-10-20] VITALS: BP 106/65
--- NOTE | 2020-10-20 00:25 | NUR ---
AWAKE, ALERT, AND ORIENT, ABLE TO FOLLOW DIRECTONS. ANXIOUS, PLAN OF CARE REVIEWED. C/O PAIN WITH URINATION. URINE SAMPLE COLLECTED FOR TESTING.
[2020-10-20 00:44] LABS: BILIRUBIN Negative (Negative); BLOOD Negative (Negative); CLARITY Clear (Clear); COLOR Yellow (Yellow); GLUCOSE Negative (Negative); KETONE Negative (Negative); LEUKO ESTERASE 3+ (Negative); NITRITE Negative (Negative); SPECIFIC GRAVITY <= 1.005 (1.001-1.030); UROBILINOGEN 0.2 E.U./dl (0.0-1.0)
[2020-10-20 01:23] LABS: BACTERIA 2+; WBC 31-40 wbc/hpf (0-5)
--- NOTE | 2020-10-20 02:15 | NUR ---
PATIENT SLEEPING, AWAKES EASILY. PATIENT HAD SIPS OF WATER. PATIENT TOLERATING BIPAP MASK.
--- NOTE | 2020-10-20 03:05 | NUR ---
PATIENT HAS AGREED TO WEAR THE BIPAP, BUT HAS ASKED IF SHE COULD ONLY DO 2 HOURS AT A TIME, DUE TO ANXIETY FROM THE MACHINE.
--- NOTE | 2020-10-20 03:20 | NUR ---
MEDICINE ON-CALL NOTIFIED RESULTS OF URINE SPECIMEN AND PATIENT HAVING PAIN WITH URINATION. DOCTOR STATES WILL PLACE ORDER.
--- NOTE | 2020-10-20 04:25 | NUR ---
PATIENT AWAKES, NO SIGNS OF DISTRESSED OR SHORTNESS OF BREATH. ABLE TO FOLLOW DIRECTIONS. NC 3L, HOB ELEVATED.
[2020-10-20 06:13] LABS: ALBUMIN 2.4 gm/dl (3.1-4.5); ALKALINE PHOSPHATASE 98 U/L (45-117); BUN 11 mg/dl (7-24); CHLORIDE 102 mmol/L (98-107); CHOLESTEROL 136 mg/dL (<200); CPK 50 U/L (26-192); CREATININE 0.81 mg/dL (0.55-1.02); HDL CHOLESTEROL 44 mg/dl (40-60); HEMATOCRIT 42.8 % (37.0-47.0); LDH 300 U/L (84-246); LDL CHOLESTEROL 74 mg/dL (9-159); LYMPH # 0.6 10*3/uL (1.3-4.4); LYMPH % 14.8 % (27.0-41.0); MEAN CELL VOLUME 91.5 fl (81.0-99.0); MEAN CORPUSCULAR HGB 29.7 pg (27.0-31.0); MEAN CORPUSCULAR HGB CONC 32.5 g/dl (33.0-37.0); MEAN PLATELET VOLUME 10.1 fl (9.6-12.3); MONO # 0.2 10*3/uL (0.1-1.0); MONO % 4.2 % (3.0-9.0); NEUT # 3.3 10*3/uL (2.3-7.9); NEUT % 80.5 % (47.0-73.0); PLATELET COUNT AUTOMATED 261 10*3/uL (130-400); RED BLOOD COUNT 4.68 10*6/uL (4.10-5.10); RED CELL DISTRI WIDTH 13.9 % (0-14.5); SGOT/AST 24 IU/L (3-35); SGPT/ALT 15 U/L (12-78); SODIUM 136 mmol/L (136-145); TOTAL PROTEIN 6.4 gm/dL (6.4-8.2); TRIGLYCERIDES 89 mg/dl (<150); VLDL CHOLESTEROL 18 mg/dL (6-40); WHITE BLOOD COUNT 4.1 10*3/uL (4.8-10.8)
[2020-10-20 06:20] LABS: FREE T4 1.36 ng/dl (0.76-1.46)
[2020-10-20 06:28] LABS: THYROID STIM HORMONE (HS) 0.825 uIU/ml (0.358-4.75)
[2020-10-20 06:47] LABS: ACT PARTIAL THROMBO TIME 27.8 SECONDS (20.0-32.1); INTERNATIONAL NORM RATIO 0.9 (2.0-3.5)
[2020-10-20 08:00] VITALS: BP 104/54
[2020-10-20 08:50] LABS: FERRITIN 131.3 ng/mL (10.0-291.0); VITAMIN D, 25-HYDROXY 45.3 ng/mL (30-100)
[2020-10-20 08:51] LABS: ABG BASE EXCESS 3.5 mmol/L (-2.0-2.0); ARTERIAL BLOOD GAS PH 7.488 (7.35-7.45)
--- NOTE | 2020-10-20 11:00 | NUR ---
PATIENT PRONED AND BIPAP IN USE. WILL MONITOR. CONT.PULSE OX MAINTAINED. POX 94% VIA BIPAP.
--- NOTE | 2020-10-20 11:06 | NUR ---
IN TO SEE PATIENT AND NOTIFIED REGARDING PATIENT'S REQUEST FOR ANXIETY MEDICATION.
[2020-10-20 12:00] VITALS: BP 100/40
--- NOTE | 2020-10-20 13:03 | NUR ---
PT. TAKEN OFF BIPAP AND PLACED ON HFNC AT 15 FOR LUNCH.
--- NOTE | 2020-10-20 13:48 | NUR ---
PT MEDICATED WITH IV BENADRYL PER PRN ORDER FOR C/O ANXIETY RELATED TO BIPAP MACHINE. WILL MONITOR EFFECTIVENESS.
--- NOTE | 2020-10-20 14:48 | NUR ---
BENEDRYL APPEARS EFFECTIVE AT THIS TIME. PT RESTING COMFORTABLY. BIPAP IN USE.
[2020-10-20 16:00] VITALS: BP 103/49
--- NOTE | 2020-10-20 17:40 | NUR ---
BIPAP ON STANDBY. PATIENT PLACED ON 15L HIGH-FLOW NC FOR DINNER. WILL MONITOR.
--- NOTE | 2020-10-20 19:30 | NUR ---
Pt resting on BiPap. Pt taken off to get a drink of water. Pt states she is very anxious. Pt willing to go back on BiPap 14/10 and FiO2 40%. Alarms on and audible.
[2020-10-20 20:00] VITALS: BP 122/60
--- NOTE | 2020-10-20 20:48 | NUR ---
MEDICATED WITH IV ZOFRAN ORDERED PER PT REQUEST FOR C/O NAUSEA.
--- NOTE | 2020-10-20 20:55 | NUR ---
MEDICATED WITH PO BENEDRYL ORDERED PER PT REQUEST FOR C/O ANXIETY.
--- NOTE | 2020-10-20 22:00 | NUR ---
MEDICATION EFFECTIVE FOR NASUEA, NOT FOR ANXIETY.
--- NOTE | 2020-10-20 22:20 | NUR ---
Pt still resting on BiPap 14/10 - 40%. Alarms on and auidble.
[2020-10-21] VITALS: BP 128/55
--- NOTE | 2020-10-21 00:37 | NUR ---
PATIENT AWAKE, ORIENT, ABLE TO FOLLOW DIRECTIONS. ANXIOUS. BIPAP, HOB ELEVATED. C/O NAUSEA.
--- NOTE | 2020-10-21 02:54 | NUR ---
Pt resting on BiPap. Alarms on and audible.
[2020-10-21 06:34] LABS: ALBUMIN 2.5 gm/dl (3.1-4.5); BUN 16 mg/dl (7-24); CHLORIDE 106 mmol/L (98-107); CREATININE 0.76 mg/dL (0.55-1.02); LDH 318 U/L (84-246); POTASSIUM 3.7 mmol/L (3.5-5.1); SGOT/AST 27 IU/L (3-35); SGPT/ALT 18 U/L (12-78); SODIUM 139 mmol/L (136-145); TOTAL PROTEIN 6.3 gm/dL (6.4-8.2)
[2020-10-21 06:35] LABS: ALKALINE PHOSPHATASE 96 U/L (45-117)
[2020-10-21 07:26] LABS: BASO % 0.2 % (0.0-1.0); HEMATOCRIT 39.9 % (37.0-47.0); LYMPH # 1.4 10*3/uL (1.3-4.4); LYMPH % 11.6 % (27.0-41.0); MEAN CELL VOLUME 91.3 fl (81.0-99.0); MEAN CORPUSCULAR HGB 29.5 pg (27.0-31.0); MEAN CORPUSCULAR HGB CONC 32.3 g/dl (33.0-37.0); MONO # 0.9 10*3/uL (0.1-1.0); MONO % 7.4 % (3.0-9.0); NEUT # 9.5 10*3/uL (2.3-7.9); NEUT % 80.4 % (47.0-73.0); RED BLOOD COUNT 4.37 10*6/uL (4.10-5.10); RED CELL DISTRI WIDTH 13.7 % (0-14.5); WHITE BLOOD COUNT 11.8 10*3/uL (4.8-10.8)
[2020-10-21 07:29] LABS: PLATELET COUNT AUTOMATED 347 10*3/uL (130-400)
[2020-10-21 08:00] VITALS: BP 104/87
[2020-10-21 08:22] LABS: ARTERIAL BLOOD GAS PH 7.517 (7.35-7.45)
--- NOTE | 2020-10-21 08:47 | NUR ---
TOOK PT OFF OF BIPAP AND PLACED ON 15LHF
--- NOTE | 2020-10-21 08:57 | NUR ---
Form Tamper Operator in to talk to patient. Patient states lives at home with her and son. There are 0 steps in the home. Physician: Savi Glass Pharmacy: [facility] Home health services: none Patient's level of ADLs: INDEPENDENT Patient has working utilities: yes DME: none Follow-up physician's appointment after d/c: will be made by the hospitalist nurse director upon discharge Does patient want to access PORTAL?: no Discharge plan discussed with patient. She lives at home with her and son. She states she is independent in her ADLs and ambulation. Discussed home health care services and she declines. CM will continue to follow for any discharge planning needs. When medically stable she will be discharged to home. She states her son will provide transportation on discharge. [place]
--- NOTE | 2020-10-21 10:05 | NUR ---
PATIENT AWAKE, ALERT AND ORIENTED LAYING IN BED. NO STATED COMPLAINTS AT THIS TIME. NO SOB OR DISTRESS NOTED. O2 INTACT. PULSE OX WITHIN NORMAL LIMITS. PT ABLE TO REPOSITION SELF AND IS ENCOURAGED TO DO SO. EDUCATION PROVIDED REGARDING MEDICATIONS. BED IN LOWEST LOCKED POSITION AND CALL LIGHT WITHIN REACH. WILL CONTINUE TO MONITOR.
[2020-10-21 12:00] VITALS: BP 120/90
[2020-10-21 16:00] VITALS: BP 134/59
--- NOTE | 2020-10-21 17:35 | NUR ---
PHYSICAL THERAPY Nursing screen received and chart reviwed. Patient admitted under PUI Covid-19. Patient tested negative for Covid-19 via PCR, 10/19/20. Recommend skilled PT evaluation if decline in functional mobility presents. Thank you. Erlinda Issa,PT,DPT
--- NOTE | 2020-10-21 17:57 | NUR ---
XANAX GIVEN PER PT REQUEST PRIOR TO BIPAP USE.
[2020-10-21 20:00] VITALS: BP 102/50
--- NOTE | 2020-10-21 20:09 | NUR ---
Pt resting on BiPap. Alarms on and audible.
--- NOTE | 2020-10-21 21:00 | NUR ---
RESTING IN BED WITH BIPAP IN USE. SAT UP SIDE OF BED, OXYGEN NC WHILE DRINKING. BIPAP BACK IN USE. CALL LIGHT IN REACH. SEE SHIFT ASSESSMENT.
--- NOTE | 2020-10-21 22:00 | NUR ---
Pt placed back on BiPap. Alarms on and audible.
--- NOTE | 2020-10-21 23:25 | NUR ---
PT RESTING IN BED, ANXIOUS, BIPAP WAS UNHOOKED. REAPPLIED. RESP-36-40 ANXIOUS. MEDICATED WITH XANAX PO AND RESTORIL PER PT REQUEST FOR INSOMNIA. SAT WITH PT FOR 1/2 HOUR AND HELD HER HAND AND TALKED WITH HER. PT MEDICATED EFFECTIVE. RESP 24-28. BIPAP IN USE. CALL LIGHT N REACH.
[2020-10-22] VITALS: BP 131/57
--- NOTE | 2020-10-22 05:00 | NUR ---
PT ASSISTED UP TO BEDSIDE COMMODE, BATHED AND ASSISTED BACK TO BED. OXYGEN IN USE. PROD COUGH FOR CLEAR PHLEGM. CALL LIGHT IN REACH.
[2020-10-22 06:33] LABS: BASO % 0.1 % (0.0-1.0); HEMATOCRIT 39.6 % (37.0-47.0); LYMPH # 1.3 10*3/uL (1.3-4.4); LYMPH % 10.8 % (27.0-41.0); MEAN CELL VOLUME 92.7 fl (81.0-99.0); MEAN CORPUSCULAR HGB 28.8 pg (27.0-31.0); MEAN CORPUSCULAR HGB CONC 31.1 g/dl (33.0-37.0); MEAN PLATELET VOLUME 9.7 fl (9.6-12.3); MONO # 0.9 10*3/uL (0.1-1.0); MONO % 6.9 % (3.0-9.0); NEUT # 10.1 10*3/uL (2.3-7.9); NEUT % 81.6 % (47.0-73.0); PLATELET COUNT AUTOMATED 380 10*3/uL (130-400); RED BLOOD COUNT 4.27 10*6/uL (4.10-5.10); RED CELL DISTRI WIDTH 13.8 % (0-14.5); WHITE BLOOD COUNT 12.4 10*3/uL (4.8-10.8)
[2020-10-22 06:37] LABS: ALBUMIN 2.5 gm/dl (3.1-4.5); BUN 15 mg/dl (7-24); CHLORIDE 108 mmol/L (98-107); CREATININE 0.78 mg/dL (0.55-1.02); POTASSIUM 3.5 mmol/L (3.5-5.1); SGOT/AST 24 IU/L (3-35); SGPT/ALT 18 U/L (12-78); SODIUM 142 mmol/L (136-145); TOTAL PROTEIN 6.2 gm/dL (6.4-8.2)
[2020-10-22 06:40] LABS: ALKALINE PHOSPHATASE 92 U/L (45-117); LDH 316 U/L (84-246)
[2020-10-22 08:00] VITALS: BP 115/51
--- NOTE | 2020-10-22 08:45 | NUR ---
CM spoke to patient via phone. No new needs or request at this time. Discussed home health care services and she declines. CM will continue to follow for any discharge planning needs. When medically stable she will be discharged to home.
[2020-10-22 10:07] LABS: ABG BASE EXCESS 1.5 mmol/L (-2.0-2.0); ARTERIAL BLOOD GAS PH 7.469 (7.35-7.45)
--- NOTE | 2020-10-22 11:42 | NUR ---
PT PLACED ON BIPAP 14/10 @ 40% PER DR WILLSON'S ORDER. PT TO REMAIN ON BIPAP AND IF PT IS TRULY REFUSING BIPAP THEN SHE MUST SIGN A REFUSAL.SPO2 99%. PT TOLERATING WELL. NOTIFIED RT AT THAT TIME. ALARM INTACT. CALL LIGHT IN REACH.
[2020-10-22 12:00] VITALS: BP 130/39
[2020-10-22 16:00] VITALS: BP 116/60
--- NOTE | 2020-10-22 16:03 | NUR ---
PT ON BIPAP AT THIS TIME. EDUCATION PROVIDED REGARDING DR WILLSON'S ORDER. PT COMPLIANT AT THIS TIME. 14/10 @ 40%.SPO2 97%. REINFORCED IMPORTANCE OF WEARING BIPAP AT LONGER INTERVALS.ALARM INTACT.CALL LIGHT IN REACH.
[2020-10-22 20:00] VITALS: BP 132/66
--- NOTE | 2020-10-22 20:30 | NUR ---
PATIENT TAKEN OFF BIPAP AT THIS TIME TO EAT DINNER. 15LHFNC PLACED PATIENT ATE A WHOLE PUDDING CUP AND SOME MASHED POTATOES. PATIENT VERY ANXIOUS AND SHAKEY. XANEX GIVEN EARLIER NOT EFFECITVE. HELPED UP TO BEDSIDE COMMODE WITH MINIMAL ASSISTANCE. PATIENT INCONTIENT FOR DIARRHEA. BREIF CHANGED AND PATIENT CLEANED UP. PATIENT HELPED BACK INTO BED. PATIENT SOB AT REST AND EXERTION. BIPAP PLACED BACK ON PATIENT. CONTINOUS PULSE OX ON. 94%. BED IN LOWEST POSITION,CALL LIGHT WITHIN REACH. BED ALARM ON. WILL CONTINUE TO MONITOR.
[2020-10-23] VITALS: BP 127/65
--- NOTE | 2020-10-23 00:22 | NUR ---
PATIENT VERY ANXIOUS. REQUESTING SOMETHING FOR NERVES. MEDICATED WITH XANEX. WILL CHECK EFFECTIVENESS.
--- NOTE | 2020-10-23 02:06 | NUR ---
PATIENT REMAINS ANXIOUS RESPIRATIONS IN THE 'S. NOTIFIED DR. AMIN. 0.5MG IV ATIVAN ORDERED NOW.
--- NOTE | 2020-10-23 02:46 | NUR ---
PATIENT MEDICATED WITH IV ATIVAN FOR ANXIETY AT THIS TIME. WILL CHECK EFFECTIVENESS.
--- NOTE | 2020-10-23 03:30 | NUR ---
ATIVAN EFFECTIVE. PATIENT SLEEPING. NO SIGNS OF DISTRESS. ON BIPAP 14/10 40% PULSE OX 91%. BED IN LOWEST POSITION,CALL LIGHT WITHIN REACH. BED ALARM ON. WILL CONTINUE TO MONITOR.
--- NOTE | 2020-10-23 05:41 | NUR ---
PATIENT AWAKE ALERT. REMAINS ON BIPAP FIO2 40% PULSE OX 90-91% HR IN THE 70'S PER ELEVATOR EXAMINER AND ADJUSTER. WILL CONTINUE TO MONITOR.
[2020-10-23 07:33] LABS: BASO % 0.1 % (0.0-1.0); HEMATOCRIT 41.1 % (37.0-47.0); LYMPH # 1.3 10*3/uL (1.3-4.4); LYMPH % 9.1 % (27.0-41.0); MEAN CELL VOLUME 91.5 fl (81.0-99.0); MEAN CORPUSCULAR HGB CONC 31.6 g/dl (33.0-37.0); MEAN PLATELET VOLUME 9.6 fl (9.6-12.3); MONO # 1.2 10*3/uL (0.1-1.0); MONO % 8.4 % (3.0-9.0); NEUT # 11.3 10*3/uL (2.3-7.9); NEUT % 81.1 % (47.0-73.0); PLATELET COUNT AUTOMATED 393 10*3/uL (130-400); RED BLOOD COUNT 4.49 10*6/uL (4.10-5.10); RED CELL DISTRI WIDTH 13.6 % (0-14.5)
[2020-10-23 08:00] VITALS: BP 124/80
[2020-10-23 08:03] LABS: ALBUMIN 2.7 gm/dl (3.1-4.5); BUN 17 mg/dl (7-24); CHLORIDE 110 mmol/L (98-107); CREATININE 0.71 mg/dL (0.55-1.02); LDH 323 U/L (84-246); POTASSIUM 3.3 mmol/L (3.5-5.1); SGOT/AST 27 IU/L (3-35); SGPT/ALT 22 U/L (12-78); SODIUM 141 mmol/L (136-145); TOTAL PROTEIN 6.4 gm/dL (6.4-8.2)
[2020-10-23 08:04] LABS: ALKALINE PHOSPHATASE 96 U/L (45-117)
[2020-10-23 08:17] LABS: ABG BASE EXCESS 1.6 mmol/L (-2.0-2.0); ARTERIAL BLOOD GAS PH 7.48 (7.35-7.45)
--- NOTE | 2020-10-23 10:15 | NUR ---
PT TAKEN OFF BIPAP TO EAT AND TAKE MEDS.
--- NOTE | 2020-10-23 10:48 | NUR ---
PT PLACED BACK ON BIPAP PER DR WILLSON'S ORDER.
[2020-10-23 16:00] VITALS: BP 131/69
[2020-10-23 20:00] VITALS: BP 145/78
--- NOTE | 2020-10-23 23:30 | NUR ---
PT ASSISTED UP TO BEDSIDE COMMODE AND BACK TO BED WITH 1 ASSIST. OXYGEN IN USE VIA NASAL CANNULA. MEDICATED WITH RESTORIL PO AND XANAX PO, SEE EMAR. CALL LIGHT IN REACH. SEE SHIFT ASSESSMENT.
[2020-10-24] VITALS: BP 137/74
--- NOTE | 2020-10-24 01:00 | NUR ---
PT ASSISTED UP TO BSC AND BACK TO BED. C/O NAUSEA, MEDICATED WITH ZOFRAN IV PER PRN ORDER, SEE EMAR. BIPAP IN USE. CALL LIGHT IN REACH. SEE SHIFT ASSESSMENT.
--- NOTE | 2020-10-24 03:57 | NUR ---
PT ANXIOUS IN BED, RESP--28. C/O LEFT UPPER ABDOMINAL PAIN. MEDICATED WITH XANAX FOR ANXIETY. AND NORCO PO PER PRN ORDER, SEE EMAR. CALL LIGHT IN REACH. BED ALARM ON.
--- NOTE | 2020-10-24 04:50 | NUR ---
RESP-EASY AND REGULAR. SLEEPING IN BED WITH OXYGEN IN USE. MEDICATION SEEMS TO BE EFFECTIVE. CALL LIGHT IN REACH.
--- NOTE | 2020-10-24 06:00 | NUR ---
TOLERATED ROUTINE MED WITH NO PROBLEM. NO C/O AT THIS TIME. OXYGEN IN USE. CALL LIGHT IN REACH. BED ALARM ON.
[2020-10-24 06:13] LABS: HEMATOCRIT 39.1 % (37.0-47.0); MEAN CELL VOLUME 90.9 fl (81.0-99.0); MEAN CORPUSCULAR HGB 29.5 pg (27.0-31.0); MEAN CORPUSCULAR HGB CONC 32.5 g/dl (33.0-37.0); MEAN PLATELET VOLUME 9.2 fl (9.6-12.3); PLATELET COUNT AUTOMATED 337 10*3/uL (130-400); RED CELL DISTRI WIDTH 13.8 % (0-14.5); WHITE BLOOD COUNT 14.1 10*3/uL (4.8-10.8)
[2020-10-24 06:51] LABS: ALBUMIN 2.3 gm/dl (3.1-4.5); BUN 15 mg/dl (7-24); CHLORIDE 109 mmol/L (98-107); POTASSIUM 3.1 mmol/L (3.5-5.1); SODIUM 140 mmol/L (136-145)
[2020-10-24 06:55] LABS: ALKALINE PHOSPHATASE 108 U/L (45-117); CREATININE 0.63 mg/dL (0.55-1.02); LDH 315 U/L (84-246); SGOT/AST 21 IU/L (3-35); SGPT/ALT 21 U/L (12-78); TOTAL PROTEIN 5.7 gm/dL (6.4-8.2)
[2020-10-24 08:00] VITALS: BP 112/58
[2020-10-24 08:10] LABS: BURR CELLS FEW; PLATELET SUFFICIENCY NORMAL (NORMAL); TOTAL CELLS COUNTED 100 #CELLS
--- NOTE | 2020-10-24 09:40 | NUR ---
NOTIFIED DR FOREMAN OF PT CONVERTING TO AFIB FROM NSR. PER PT HISTORY THIS APPEARS TO BE NEW ONSET.EKG ORDERED AND AWAITING FURTHER ORDERS.
[2020-10-24 10:14] LABS: ABG BASE EXCESS 0.5 mmol/L (-2.0-2.0); ARTERIAL BLOOD GAS PH 7.468 (7.35-7.45)
[2020-10-24 12:00] VITALS: BP 134/70
--- NOTE | 2020-10-24 13:10 | NUR ---
CARDIZEM GTT STARTED AND INFUSING @ 10 ML/HR.PT HR 145 AND SUSTAINING. PT REPOSITIONED FOR COMFORT SPO2 90% ON BIPAP.WILL CONTINUE TO MONITOR. CALL LIGHT IN REACH.
[2020-10-24 16:00] VITALS: BP 101/55
[2020-10-24 16:43] LABS: ABG BASE EXCESS -1.1 mmol/L (-2.0-2.0); ARTERIAL BLOOD GAS PH 7.464 (7.35-7.45)
--- NOTE | 2020-10-24 18:10 | NUR ---
TITRATED CARDIZEM GTT TO 5ML/HR. HR INTERMITTENTLY 85-107. PT INCONTINENT OF URINE. PERICARE PROVIDED.REPOSITIONED FOR COMFORT.CALL LIGHT IN REACH.
[2020-10-24 20:00] VITALS: BP 93/56
--- NOTE | 2020-10-24 20:15 | NUR ---
DR WILLSON CALLED REGARDING PT STATUS. DR WILLSON ASK THAT WE DISCUSS POSSIBLE INTUBATION IF NEEDED. RN TO NOTIFY CHARGE AND PATIENT ACCOUNT ANALYST OF POSSIBLE TRANSFER.
--- NOTE | 2020-10-24 20:30 | NUR ---
RN CALLED AND SPOKE WITH SON REGRDING POSSIBLE INTUBATION PER THE PT REQUEST. SON STATES HE WOULD WANT HER TO DO WHATEVER MEANS OF TREATMENT RECOMMENDED. SPOKE WITH PT AND SHE AGREED TO BE TRANSFERED TO ICU FOR MONITORING PURPOSE AND POSSIBLE INTUBATION IF RESPIRATORY STATUS WERE TO DECLINE. DR WILLSON MADE AWARE, CHARGE MADE AWARE, CORPORATE TUTOR MADE AWARE.
[2020-10-24 22:31] LABS: ARTERIAL BLOOD GAS PH 7.471 (7.35-7.45)
--- NOTE | 2020-10-24 23:18 | NUR ---
2314 - PT. RECEIVED FROM , REPORT RECEIVED FROM ALICIA VEGA. VS STABLE 97.1-101-30, 97/60. PULSE OX 93% ON BIPAP 40%. LUNGS DIMINISHED BILAT. ABDOMEN SOFTLY DISTENDED AND NORMO, OBESE. 2+BLE EDEMA NOTED. PT. REMAINS ALERT AND ORIENTED x3. DG DOAN RN
[2020-10-25] VITALS (8 sets, daily range): BP systolic 83–106; BP diastolic 50–64
[2020-10-25 05:57] LABS: ALBUMIN 2.2 gm/dl (3.1-4.5); ALKALINE PHOSPHATASE 92 U/L (45-117); BUN 21 mg/dl (7-24); CHLORIDE 116 mmol/L (98-107); CREATININE 0.62 mg/dL (0.55-1.02); LDH 255 U/L (84-246); SGOT/AST 11 IU/L (3-35); SGPT/ALT 18 U/L (12-78); SODIUM 143 mmol/L (136-145); TOTAL PROTEIN 5.7 gm/dL (6.4-8.2)
[2020-10-25 05:58] LABS: BASO % 0.2 % (0.0-1.0); HEMATOCRIT 41.2 % (37.0-47.0); LYMPH # 0.9 10*3/uL (1.3-4.4); LYMPH % 9.1 % (27.0-41.0); MEAN CELL VOLUME 91.4 fl (81.0-99.0); MEAN CORPUSCULAR HGB CONC 31.8 g/dl (33.0-37.0); MEAN PLATELET VOLUME 9.9 fl (9.6-12.3); MONO # 0.7 10*3/uL (0.1-1.0); MONO % 6.5 % (3.0-9.0); NEUT # 8.5 10*3/uL (2.3-7.9); NEUT % 82.6 % (47.0-73.0); PLATELET COUNT AUTOMATED 344 10*3/uL (130-400); RED BLOOD COUNT 4.51 10*6/uL (4.10-5.10); WHITE BLOOD COUNT 10.3 10*3/uL (4.8-10.8)
[2020-10-25 06:04] LABS: POTASSIUM 4.1 mmol/L (3.5-5.1)
--- NOTE | 2020-10-25 07:35 | NUR ---
Shift chart check completed.
[2020-10-25 08:51] LABS: ABG BASE EXCESS -1.4 mmol/L (-2.0-2.0); ARTERIAL BLOOD GAS PH 7.476 (7.35-7.45)
--- NOTE | 2020-10-25 09:00 | NUR ---
ASSESSMENT DONE - PT AAOX3 BUR ANXIOUS - REASSURANCE GIVEN AND EXPLANATIONS ABOUT NEED TO PRONE EXPLAINED. BREAKFAST ORDERED. PLACED ON HFNC @ 15L. REFUSED ALYCIA "THEY HURT" PER PT - LOVENOX TAKEN - CARDIZEM DRIP CONTINUES @ 5MG/HR
--- NOTE | 2020-10-25 11:15 | NUR ---
MEDICATED W/ XANAX PRE-GOING BACK ON BIPAP.. REINFORCED NEED TO PRONE
--- NOTE | 2020-10-25 11:34 | NUR ---
IV TO RT ARM OUT. CARDIZEM DRIP STOPPED AFTER PO CARDIZEM STARTED..PT RESTING ON HFNC 15L AND SATS 92%
--- NOTE | 2020-10-25 12:00 | NUR ---
SLEEPING AFTER MEDICATED WITH XANAX
--- NOTE | 2020-10-25 13:08 | NUR ---
SPOKE WITH DR ANAMIKA SALAZAR REVIEWED IN MORE DETAIL - ORDERS RECEIVED - ENCOURAGE PT TO PRONE
--- NOTE | 2020-10-25 15:21 | NUR ---
SLEEPING ON BIPAP
--- NOTE | 2020-10-25 16:14 | NUR ---
PT ON HFNC AT 15L SAT 97%, HEART RATE 93.
--- NOTE | 2020-10-25 18:00 | NUR ---
XANAX GIVEN FOR ANXIETY AFTER EATING
--- NOTE | 2020-10-25 20:33 | NUR ---
1950 ANXIOUS. PULSE OX 96% ON 15L HI ORION NC. STATES " AM I DOING OK" REASSURANCE GIVEN. HEP LOCK INTACT DENISE. GOVEA PATENT AND DRAINING CLEAR YELLOW URINE. NO DISTRESS NOTED. TOO EARLY FOR XANAX. 1954 NORCO PO GIVEN FOR C/O'S GENERALIZED DISCOMFORT. WILL MONITOR. ISOLATION CONT.
--- NOTE | 2020-10-25 20:55 | NUR ---
205 EARLIER NORCO EFFECTIVE.
--- NOTE | 2020-10-25 21:06 | NUR ---
2106 RESTORIL PO FOR SLEEP. WILL MONITOR.
--- NOTE | 2020-10-25 22:06 | NUR ---
EARLIER RESTORIL APPEARS TO BE EFFECTIVE.
--- NOTE | 2020-10-25 23:34 | NUR ---
2334 XANAX PO FOR C/O'S ANXIETY. BIPAP APPLIED. WILL MONITOR.
[2020-10-26] VITALS (27 sets, daily range): BP systolic 57–135; BP diastolic 36–92
--- NOTE | 2020-10-26 00:34 | NUR ---
0034 EARLIER XANAX EFFECTIVE. RESTING IN BED WITH EYES CLOSED. APPEARS TO BE SLEEPING. BIPAP INTACT.
--- NOTE | 2020-10-26 04:05 | NUR ---
REMAINS SLEEPING AT INTERVALS. REQUESTING XANAX - TOO EARLY.
--- NOTE | 2020-10-26 05:39 | NUR ---
0539 XANAX PO FOR C/O'S ANXIETY. WILL MONITOR FOR EFFECTIVENESS
--- NOTE | 2020-10-26 06:09 | NUR ---
BIPAP OFF AT 0500 PER PT REQUEST. 0600 PULSE OX 97% ON 02 VIA 15L HI ORION. RESTING IN BED ON LEFT SIDE WITH HOB ELEVATED. CALL LIGHT IN REACH. NO DISTRESS NOTED. CONDITION GUARDED.
[2020-10-26 06:14] LABS: BASO % 0.1 % (0.0-1.0); HEMATOCRIT 40.4 % (37.0-47.0); LYMPH # 0.9 10*3/uL (1.3-4.4); LYMPH % 6.4 % (27.0-41.0); MEAN CELL VOLUME 90.6 fl (81.0-99.0); MEAN CORPUSCULAR HGB 28.7 pg (27.0-31.0); MEAN CORPUSCULAR HGB CONC 31.7 g/dl (33.0-37.0); MONO # 0.8 10*3/uL (0.1-1.0); MONO % 5.5 % (3.0-9.0); NEUT # 12.5 10*3/uL (2.3-7.9); NEUT % 86.6 % (47.0-73.0); PLATELET COUNT AUTOMATED 441 10*3/uL (130-400); RED BLOOD COUNT 4.46 10*6/uL (4.10-5.10); WHITE BLOOD COUNT 14.4 10*3/uL (4.8-10.8)
[2020-10-26 06:29] LABS: ALBUMIN 2.2 gm/dl (3.1-4.5); BUN 24 mg/dl (7-24); CHLORIDE 117 mmol/L (98-107); CREATININE 0.76 mg/dL (0.55-1.02); LDH 245 U/L (84-246); POTASSIUM 4.2 mmol/L (3.5-5.1); SGOT/AST 9 IU/L (3-35); SGPT/ALT 17 U/L (12-78); SODIUM 144 mmol/L (136-145); TOTAL PROTEIN 5.7 gm/dL (6.4-8.2)
[2020-10-26 06:30] LABS: ALKALINE PHOSPHATASE 98 U/L (45-117)
--- NOTE | 2020-10-26 06:39 | NUR ---
0639 EARLIER XANAX EFFECTIVE, RESTING IN BED WITH EYES CLOSED. APPEARS TO BE SLEEPING.
[2020-10-26 08:07] LABS: ARTERIAL BLOOD GAS PH 7.462 (7.35-7.45)
--- NOTE | 2020-10-26 09:30 | NUR ---
PATIENT INSTRUCTED ON NEED TO WEAR THE BIPAP AND IMPORTANCE OF PRONING. EXPLAINED THAT HER AM L;ABS WERE NOT VERY GOOD AND THERE WAS A CHANCE THAT SHE MAY NEED TO GO ON THE VENTILATOR. EXPLAINED WHAT IT WAS, WHAT WE DID, AND WHAT CAN HAPPEN & OPTIONS IF SHE CHOOSES TO NOT DO IT. PATIENT ASKED NURSE WHAT TO DO AND NURSE REPLIED " I CAN'T ANSWER FOR YOU.. BUT I WOULD SAY THIS. " IF YOU WANT TO FIGHT TO LIVE THEN YES YOU SHOULD CONSIDER IT BUT IF YOU DECIDE THAT THIS IS NOT WHAT YOU WANT AND YOU UNDERSTAND THAT IT MEANS YOU COULD STOP BREATHING AND PASS AWAY THEN THAT IS OK TOO." NURSE ALSO SUGGESTED SHE SPEAK WITH HER SON & WE DID GET HIM ON THE PHONE, NURSE EXPLAINED THE POSSIBLILITY TO HIM AND THEY SPOKE. SON ALSO REQUESTED SHE NOT BE GIVEN A NEWPAPER TODAY SO THAT SHE DOES NOT FIND OUT ABOUT HER DAUGHTER'S PASSING. PER THE PATIENT SHE WANTS TO FIGHT AT THIS TIME. PLACED BACK ON BIPAP AND ABG TO BE DONE @ 1130. IV started right hand with #22 protective cath after 1 attempts. Site prepped with Chloroprep. Sterile dressing applied. Patient tolerated procedure well. IV TO DENISE CAME OUT AND WAS REMOVED. DRESSING APPLIED. 3 OTHER ATTEMPTS UNSUCCESSFUL. ETHAN DURAN
[2020-10-26 11:55] LABS: ABG BASE EXCESS -2.1 mmol/L (-2.0-2.0); ARTERIAL BLOOD GAS PH 7.471 (7.35-7.45)
--- NOTE | 2020-10-26 16:31 | NUR ---
SPOKE WITH THE PATIENT'S & SON (TORSTEN) VIA PHONE AND THEY BOTHE AGREED TO INTUBATION, MLC INSERTION & ARTLINE INSERTION...PATIENT VOICED THAT SHE IS SCARED BUT IF SHE NEEDS IT ITS OK..REASSURANCE PROVIDED...
--- NOTE | 2020-10-26 19:00 | NUR ---
Infomed consent obtained from patient and family by Dr. WILLSON for elective intubation. Patient intubated with 7.5 endotracheal tube orally X 1 attempts. Patient sedated with DIPRIVAN & SUCCHYLINCHOLINE Respiratory therapy at bedside. Crash cart with emergency drugs available. Endotracheal tube inflated with 10cc's. Lungs auscultated for equality of breath sounds. Tube secured with Tube tamer at 22cm's. at level of LIP. Patient tolerated procedure GOOD. Portable chest X-ray obtained and reviewed for tube placement. Patient connected to ventilator CMV mode, 425 tidal volume, 100 FIO2, 12 PEEP, and 0 pressure support. RIJ-MLC INSERTED BY ANESTHESIA WITHOUT DIFFICULTY.. RAN ARTLINE PLACED WITHOUT DIFFICULTY. ZERO'D AND CALIBRATED WITH GOOD HEMODYNAMIC RESPONSE. LEVOPHED STARTED AT 4mcg AFTER BP DROPPED. DIPRIVAN INFUSING.. LT NARES NGT PLACED #16 WITHOUT DIFFICULTY AND PLACEMENT CHANECKED WITH AIR BOLUS THEN CXR ORDERED FOR ETT/MLC/NGT PLACEMENT. ETHAN DURAN
[2020-10-26 20:33] LABS: ABG BASE EXCESS -3.3 mmol/L (-2.0-2.0); ARTERIAL BLOOD GAS PH 7.41 (7.35-7.45)
--- NOTE | 2020-10-26 22:20 | NUR ---
PATIENT PRONE AT THIS TIME. PATIENT TOLERATED WELL. RESPIRATORY AND ANESTHEIA AT BEDSIDE FOR PRONING AT THIS TIME.
[2020-10-27] VITALS (49 sets, daily range): BP systolic 67–150; BP diastolic 43–85
--- NOTE | 2020-10-27 | NUR ---
PATIENTS LEVOPHED TURNED OFF AT THIS TIME IT WAS TITRATED DOWN PATIENT BP MAINTAINING MAPS ABOVE 70.
[2020-10-27 00:59] LABS: ABG BASE EXCESS -2.7 mmol/L (-2.0-2.0); ARTERIAL BLOOD GAS PH 7.415 (7.35-7.45)
[2020-10-27 06:02] LABS: BASO % 0.1 % (0.0-1.0); HEMATOCRIT 42.3 % (37.0-47.0); LYMPH # 1.1 10*3/uL (1.3-4.4); LYMPH % 7.9 % (27.0-41.0); MEAN CELL VOLUME 89.8 fl (81.0-99.0); MEAN CORPUSCULAR HGB 29.3 pg (27.0-31.0); MEAN CORPUSCULAR HGB CONC 32.6 g/dl (33.0-37.0); MEAN PLATELET VOLUME 9.8 fl (9.6-12.3); MONO # 0.8 10*3/uL (0.1-1.0); MONO % 5.6 % (3.0-9.0); NEUT # 12.3 10*3/uL (2.3-7.9); NEUT % 85.1 % (47.0-73.0); PLATELET COUNT AUTOMATED 470 10*3/uL (130-400); RED BLOOD COUNT 4.71 10*6/uL (4.10-5.10); WHITE BLOOD COUNT 14.4 10*3/uL (4.8-10.8)
[2020-10-27 06:30] LABS: ALBUMIN 2.4 gm/dl (3.1-4.5); ALKALINE PHOSPHATASE 84 U/L (45-117); BUN 23 mg/dl (7-24); CHLORIDE 114 mmol/L (98-107); CREATININE 0.64 mg/dL (0.55-1.02); LDH 215 U/L (84-246); POTASSIUM 3.9 mmol/L (3.5-5.1); SGOT/AST 7 IU/L (3-35); SGPT/ALT 17 U/L (12-78); SODIUM 143 mmol/L (136-145); TOTAL PROTEIN 6.1 gm/dL (6.4-8.2)
[2020-10-27 08:25] LABS: ABG BASE EXCESS -1.8 mmol/L (-2.0-2.0); ARTERIAL BLOOD GAS PH 7.421 (7.35-7.45)
--- NOTE | 2020-10-27 10:32 | NUR ---
SPOKE WITH DR SUTTON VIA PHONE - MAY CHANGE ANTIBIOTICS
--- NOTE | 2020-10-27 12:38 | NUR ---
PATIENT WENT INTO AFIB W/ RVR RATE 150'S SUSTAINED -- BROKE ON OWN TO A FIB RATE IN THE 90'S
[2020-10-27 15:20] LABS: ARTERIAL BLOOD GAS PH 7.38 (7.35-7.45)
[2020-10-27 17:38] LABS: ABG BASE EXCESS -4.2 mmol/L (-2.0-2.0); ARTERIAL BLOOD GAS PH 7.387 (7.35-7.45)
--- NOTE | 2020-10-27 18:31 | NUR ---
ABG RESULTS CALLED TO DR WILLSON FIO2 DECREASED TO 55%, CONTINUE WITH PREVIOUS ORDER FOR ABGS 7 HOURS POST SUPINE.
[2020-10-27 22:55] LABS: ABG BASE EXCESS -4.9 mmol/L (-2.0-2.0); ARTERIAL BLOOD GAS PH 7.333 (7.35-7.45)
[2020-10-28] VITALS (94 sets, daily range): BP systolic 83–154; BP diastolic 44–89
[2020-10-28 05:52] LABS: ALBUMIN 2.3 gm/dl (3.1-4.5); ALKALINE PHOSPHATASE 81 U/L (45-117); BUN 32 mg/dl (7-24); CHLORIDE 112 mmol/L (98-107); CREATININE 1.06 mg/dL (0.55-1.02); LDH 180 U/L (84-246); POTASSIUM 4.4 mmol/L (3.5-5.1); SGOT/AST 11 IU/L (3-35); SGPT/ALT 14 U/L (12-78); SODIUM 139 mmol/L (136-145); TOTAL PROTEIN 5.7 gm/dL (6.4-8.2); TRIGLYCERIDES 206 mg/dl (<150)
[2020-10-28 06:24] LABS: HEMATOCRIT 42.3 % (37.0-47.0); MEAN CELL VOLUME 92.4 fl (81.0-99.0); MEAN CORPUSCULAR HGB 29.7 pg (27.0-31.0); MEAN CORPUSCULAR HGB CONC 32.2 g/dl (33.0-37.0); MEAN PLATELET VOLUME 9.9 fl (9.6-12.3); RED BLOOD COUNT 4.58 10*6/uL (4.10-5.10); WHITE BLOOD COUNT 19.2 10*3/uL (4.8-10.8)
[2020-10-28 06:31] LABS: PLATELET COUNT AUTOMATED 633 10*3/uL (130-400)
[2020-10-28 07:14] LABS: TOTAL CELLS COUNTED 100 #CELLS
[2020-10-28 07:19] LABS: BURR CELLS FEW; PLATELET SUFFICIENCY HIGH (NORMAL)
[2020-10-28 08:57] LABS: ARTERIAL BLOOD GAS PH 7.335 (7.35-7.45)
--- NOTE | 2020-10-28 09:00 | NUR ---
patient is on a ventilator, discharge plan is undecided at this time, case management will follow
[2020-10-28 09:01] LABS: ABG BASE EXCESS -5.1 mmol/L (-2.0-2.0)
--- NOTE | 2020-10-28 11:03 | NUR ---
[facility] NOTIFIED OF CONSULT FOR A-FIB
--- NOTE | 2020-10-28 12:00 | NUR ---
DR. WILLSON HERE TO SEE PATIENT. DIPRIVAN AND NIMBEX GTT TURNED OFF. TURNED AND REPOSITIONED ONTO RIGHT SIDE. NGT INFUSING PULMOCARE 20CC/HR. RESIDUAL OF 15CC NOTED. WHEEZES HEARD IN LUNG ANDRE.
[2020-10-28 14:36] LABS: ABG BASE EXCESS -4.9 mmol/L (-2.0-2.0); ARTERIAL BLOOD GAS PH 7.373 (7.35-7.45)
--- NOTE | 2020-10-28 19:53 | NUR ---
NO BRUIT OR THRILL TO R ARM AV SHUNT
[2020-10-29] VITALS (96 sets, daily range): BP systolic 84–143; BP diastolic 46–98
[2020-10-29 06:21] LABS: ALBUMIN 2.3 gm/dl (3.1-4.5); ALKALINE PHOSPHATASE 83 U/L (45-117); BUN 29 mg/dl (7-24); CHLORIDE 113 mmol/L (98-107); CREATININE 0.79 mg/dL (0.55-1.02); HEMATOCRIT 45.9 % (37.0-47.0); LDH 177 U/L (84-246); MEAN CELL VOLUME 92.7 fl (81.0-99.0); MEAN CORPUSCULAR HGB 28.5 pg (27.0-31.0); MEAN CORPUSCULAR HGB CONC 30.7 g/dl (33.0-37.0); MEAN PLATELET VOLUME 9.9 fl (9.6-12.3); PLATELET COUNT AUTOMATED 597 10*3/uL (130-400); POTASSIUM 4.8 mmol/L (3.5-5.1); RED BLOOD COUNT 4.95 10*6/uL (4.10-5.10); RED CELL DISTRI WIDTH 14.2 % (0-14.5); SGOT/AST 15 IU/L (3-35); SGPT/ALT 17 U/L (12-78); SODIUM 145 mmol/L (136-145); TOTAL PROTEIN 5.8 gm/dL (6.4-8.2); WHITE BLOOD COUNT 20.2 10*3/uL (4.8-10.8)
[2020-10-29 06:59] LABS: PLATELET SUFFICIENCY HIGH (NORMAL); POLYCHROMASIA SLIGHT; TOTAL CELLS COUNTED 100 #CELLS
[2020-10-29 08:36] LABS: ABG BASE EXCESS -3.2 mmol/L (-2.0-2.0); ARTERIAL BLOOD GAS PH 7.306 (7.35-7.45)
--- NOTE | 2020-10-29 11:47 | NUR ---
patient continues on ventilator. case management will talk with regarding placement when extubated
--- NOTE | 2020-10-29 14:45 | NUR ---
PRONED WITHOUT DIFFICULTY. LEVOPHED GTT CONTINUES AT 5 GEORGE'S, NIMBEX GTT CONTINUES AT 2 GEORGE'S AND DIPRIVAN GTT CONTINUES AT 25 GEORGE'S. ART LINE REMAINS INTACT TO RIGHT BRACHIAL AND RIJ MLC INTACT. BILATERAL HANDS PUFFY. GOVEA DRAINING CLEAR YELLOW URINE
[2020-10-29 18:07] LABS: ABG BASE EXCESS -0.2 mmol/L (-2.0-2.0); ARTERIAL BLOOD GAS PH 7.403 (7.35-7.45)
--- NOTE | 2020-10-29 18:40 | NUR ---
DR. OROZCO NOTIFIED OF A-FIB RVR WITH HEART RATE 150-160'S. ORDERS RECEIVED FOR CARDIZEM 5MG IV BOLUS AND IF NOT EFFECTIVE START CARDIZEM GTT 5MG/HR
[2020-10-30] VITALS (34 sets, daily range): BP systolic 90–139; BP diastolic 47–67
[2020-10-30 06:05] LABS: HEMATOCRIT 40.9 % (37.0-47.0); MEAN CELL VOLUME 90.5 fl (81.0-99.0); MEAN CORPUSCULAR HGB 28.8 pg (27.0-31.0); MEAN CORPUSCULAR HGB CONC 31.8 g/dl (33.0-37.0); MEAN PLATELET VOLUME 9.9 fl (9.6-12.3); PLATELET COUNT AUTOMATED 458 10*3/uL (130-400); RED BLOOD COUNT 4.52 10*6/uL (4.10-5.10); RED CELL DISTRI WIDTH 14.2 % (0-14.5); WHITE BLOOD COUNT 19.5 10*3/uL (4.8-10.8)
[2020-10-30 06:28] LABS: ALBUMIN 2.8 gm/dl (3.1-4.5); BUN 31 mg/dl (7-24); CHLORIDE 111 mmol/L (98-107); CREATININE 0.67 mg/dL (0.55-1.02); LDH 182 U/L (84-246); POTASSIUM 4.5 mmol/L (3.5-5.1); SGOT/AST 23 IU/L (3-35); SGPT/ALT 20 U/L (12-78); SODIUM 144 mmol/L (136-145); TOTAL PROTEIN 5.6 gm/dL (6.4-8.2)
[2020-10-30 06:30] LABS: ALKALINE PHOSPHATASE 73 U/L (45-117)
--- NOTE | 2020-10-30 07:01 | NUR ---
Patient unprone at this time. No additional wounds noted at time of assessment. Patient's chin dark pink in color blanchable with no open area noted. Romelia VARGAS caring for patient in room at time of assessment.
--- NOTE | 2020-10-30 07:06 | NUR ---
PATIENT UNPRONED AT THIS TIME. NO FACIAL WOUNDS NOTED UPON UNPRONING.
[2020-10-30 08:20] LABS: ATYPICAL LYMPHS 1 % (0-0); PLATELET SUFFICIENCY HIGH (NORMAL); TOTAL CELLS COUNTED 100 #CELLS
[2020-10-30 09:14] LABS: ABG BASE EXCESS 1.8 mmol/L (-2.0-2.0); ARTERIAL BLOOD GAS PH 7.392 (7.35-7.45)
--- NOTE | 2020-10-30 11:59 | NUR ---
Nutritional Support Services Note: Pt remains on a vent. Dx of respiratory failure due to covid 19. NGT feedings of pulmocare at 20cc/hr. Ht5'2 Wt.175#. IBW 100-120. TF is providing pt with 480cc/720cal daily. Pt requires 1900cal daily to maintain current wt. TF needs increased to 55cc/hr to meet pts needs. Will follow. Violet Adorno Rdn Ld
--- NOTE | 2020-10-30 12:24 | NUR ---
PT HAD BRONCHOSCOPY PERFORMED BY DR WILLSON. PT TOLERATED WELL. PT REMAINS ON VENTILATOR AT 40%.
--- NOTE | 2020-10-30 14:09 | NUR ---
Repositioned. PO cardizem was given and IV cardizem to off. Incontinent of mushy brown BM. Ilda care given. oral care given IV to RH and RAN removed. 1153 Bronchoscopy was preformed at the bedside. Specimen was hand carried to the lab. RT in to adjust vent.
[2020-10-30 15:30] LABS: ABG BASE EXCESS 1.2 mmol/L (-2.0-2.0); ARTERIAL BLOOD GAS PH 7.475 (7.35-7.45)
--- NOTE | 2020-10-30 16:15 | NUR ---
Repositioned , oral care awakens easily and is co-operative w/care.
--- NOTE | 2020-10-30 22:02 | NUR ---
PATIENT AWAKES WHEN YOU CALL HER NAME SHE RESPONDS WITH HEAD NODS TO QUESTION WHEN ASKED. PATIENT MOVES HANDS UP AND DOWN AND FEET WHEN ASKED. PATIENT RESTING COMFORTABLY WITH NO SIGNS OF DISTRESS AT THIS MOMENT.
[2020-10-31] VITALS: BP 121/55
[2020-10-31 04:00] VITALS: BP 125/71
[2020-10-31 06:09] LABS: HEMATOCRIT 36.8 % (37.0-47.0); MEAN CELL VOLUME 90.4 fl (81.0-99.0); MEAN CORPUSCULAR HGB CONC 32.1 g/dl (33.0-37.0); PLATELET COUNT AUTOMATED 359 10*3/uL (130-400); RED BLOOD COUNT 4.07 10*6/uL (4.10-5.10); RED CELL DISTRI WIDTH 14.3 % (0-14.5); WHITE BLOOD COUNT 20.2 10*3/uL (4.8-10.8)
[2020-10-31 06:15] LABS: ALBUMIN 2.5 gm/dl (3.1-4.5); BUN 34 mg/dl (7-24); CHLORIDE 111 mmol/L (98-107); CREATININE 0.59 mg/dL (0.55-1.02); LDH 210 U/L (84-246); POTASSIUM 4.5 mmol/L (3.5-5.1); SGOT/AST 22 IU/L (3-35); SGPT/ALT 22 U/L (12-78); SODIUM 144 mmol/L (136-145); TOTAL PROTEIN 5.2 gm/dL (6.4-8.2); TRIGLYCERIDES 206 mg/dl (<150)
[2020-10-31 06:16] LABS: ALKALINE PHOSPHATASE 71 U/L (45-117)
[2020-10-31 06:36] LABS: TOTAL CELLS COUNTED 100 #CELLS
[2020-10-31 06:37] LABS: BURR CELLS FEW; PLATELET SUFFICIENCY NORMAL (NORMAL); SCHISTOCYTES FEW
[2020-10-31 08:00] VITALS: BP 120/63
[2020-10-31 08:49] LABS: ABG BASE EXCESS 0.9 mmol/L (-2.0-2.0); ARTERIAL BLOOD GAS PH 7.472 (7.35-7.45)
[2020-10-31 10:12] LABS: ACID FAST SPEC PROCESSING Concentration (.)
--- NOTE | 2020-10-31 11:06 | NUR ---
Patient referral faxed to [facility] to review; will update when patient is extubated and able to participate in therapy.
--- NOTE | 2020-10-31 11:18 | NUR ---
Awake and alert this AM. Repositioned q2h. Incontinent small smears of BM. Assists w/ care.
[2020-10-31 12:00] VITALS: BP 119/55
--- NOTE | 2020-10-31 13:02 | NUR ---
pt ventilator changed out to a different one. pt placed on cpap tolerating well. spo2 96%, hr 86. abg in 2 hrs
[2020-10-31 15:03] LABS: ABG BASE EXCESS 2.2 mmol/L (-2.0-2.0); ARTERIAL BLOOD GAS PH 7.501 (7.35-7.45)
[2020-10-31 16:00] VITALS: BP 146/67
[2020-10-31 17:54] LABS: ABG BASE EXCESS 1.3 mmol/L (-2.0-2.0); ARTERIAL BLOOD GAS PH 7.475 (7.35-7.45)
--- NOTE | 2020-10-31 19:18 | NUR ---
7-7 SHIFT : PT. was repositioned q2h w/ oral care q2 hours. She remained awake and alert throughout day. MLC to [facility] is secure w/ all lines patent. NGT is secure at [facility] was increased to 40/h . pt. is tolerating this well. w/ repositioning pt. was noted to have urine leakage , therefore rosario cath was removed and #18 was inserted. At 1830 pt. was extubated per RT , Stating on removal " i dont want that tube back in" . RT here and pt. was placed to [facility].
[2020-10-31 19:30] LABS: ABG BASE EXCESS 2.1 mmol/L (-2.0-2.0); ARTERIAL BLOOD GAS PH 7.492 (7.35-7.45)
[2020-10-31 20:00] VITALS: BP 130/58
--- NOTE | 2020-10-31 21:10 | NUR ---
Patient lying comfortable on bipap, was removed to swab mouth, while off bipap patient stated she felt a little sick to her stomach. Zofran given, will montior and reassess. While off bipap patients pox stayed at 95% with no drop.
[2020-10-31 21:58] LABS: ABG BASE EXCESS 1.8 mmol/L (-2.0-2.0); ARTERIAL BLOOD GAS PH 7.499 (7.35-7.45)
--- NOTE | 2020-10-31 22:10 | NUR ---
Zofran effective for nausea.
[2020-11-01] VITALS: BP 138/62
--- NOTE | 2020-11-01 02:42 | NUR ---
Patient motioned for me to enter room, once in there, she wanted her mouth swabbed and said he stomach felt nauseated again. Zofran was given, mouth swabbed. While off bipap patients pox remained at 94%. Patient also asking when she can get the ng out. I explained the need for it at this time. Will monitor the effects of zofran.
[2020-11-01 04:00] VITALS: BP 144/68
--- NOTE | 2020-11-01 05:00 | NUR ---
When in to draw blood, patient wanted swabbed and stated zofran was effective for nausea. Patient again questioning when she will get ng out. Patient has no other complaints at this time. Pulse ox stable when off bipap.
[2020-11-01 05:59] LABS: ALBUMIN 2.6 gm/dl (3.1-4.5); BUN 35 mg/dl (7-24); CHLORIDE 112 mmol/L (98-107); CREATININE 0.52 mg/dL (0.55-1.02); POTASSIUM 4.3 mmol/L (3.5-5.1); SGOT/AST 22 IU/L (3-35); SGPT/ALT 28 U/L (12-78); SODIUM 144 mmol/L (136-145)
[2020-11-01 06:02] LABS: ALKALINE PHOSPHATASE 75 U/L (45-117); CPK 251 U/L (26-192); TOTAL PROTEIN 5.5 gm/dL (6.4-8.2)
[2020-11-01 06:16] LABS: HEMATOCRIT 36.1 % (37.0-47.0); MEAN CELL VOLUME 90.7 fl (81.0-99.0); MEAN CORPUSCULAR HGB 29.4 pg (27.0-31.0); MEAN CORPUSCULAR HGB CONC 32.4 g/dl (33.0-37.0); MEAN PLATELET VOLUME 10.3 fl (9.6-12.3); PLATELET COUNT AUTOMATED 334 10*3/uL (130-400); RED BLOOD COUNT 3.98 10*6/uL (4.10-5.10); RED CELL DISTRI WIDTH 14.1 % (0-14.5); WHITE BLOOD COUNT 23.5 10*3/uL (4.8-10.8)
[2020-11-01 06:51] LABS: TOTAL CELLS COUNTED 100 #CELLS
[2020-11-01 06:52] LABS: PLATELET SUFFICIENCY NORMAL (NORMAL)
[2020-11-01 08:00] VITALS: BP 133/59
--- NOTE | 2020-11-01 08:10 | NUR ---
PATIENT TAKEN OFF OF BI-PAP, PLACED ON 3 L/M. PULSE OX 97%.
[2020-11-01 08:19] LABS: ABG BASE EXCESS 3.9 mmol/L (-2.0-2.0); ARTERIAL BLOOD GAS PH 7.5 (7.35-7.45)
--- NOTE | 2020-11-01 08:37 | NUR ---
PT MEDICATED WITH ZOFRAN 4MG IV FOR C/O NAUSEA. TUBE FEEDING PLACED ON HOLD AT THIS TIME DUE TO C/O NAUSEA.
--- NOTE | 2020-11-01 09:30 | NUR ---
PT STATED ZOFRAN WAS EFFECTIVE IN EASING HER NAUSEA.
[2020-11-01 12:00] VITALS: BP 121/58
--- NOTE | 2020-11-01 15:13 | NUR ---
PT MEDICATED WITH ZOFRAN 4MG IV FOR C/O NAUSEA.
[2020-11-01 16:00] VITALS: BP 108/43
[2020-11-01 20:00] VITALS: BP 106/46
--- NOTE | 2020-11-01 23:45 | NUR ---
PATIENT ASLEEP. AWAKES EASILY. ABLE TO FOLLOW DIRECTIONS. DENIES PAIN AND SHORTNESS OF BREATH. PATIENT ENCOURAGED TO SLEEP TO SIDE. PATIENT REFUSING LEG PLEXES.
[2020-11-02] VITALS: BP 109/49
--- NOTE | 2020-11-02 01:29 | NUR ---
RESIDENT SLUBBER OPERATOR NOTIFIED THAT PATIENT IS REQUESTING SOMETING FOR HER NERVES. DOCTOR STATES WILL PLACE AN ORDER.
--- NOTE | 2020-11-02 01:44 | NUR ---
PATIENT GIVEN RESTORIL.
--- NOTE | 2020-11-02 03:49 | NUR ---
PATIENT SLEEPING. HOB ELEVATED. BIPAP.
[2020-11-02 04:00] VITALS: BP 116/57
--- NOTE | 2020-11-02 04:50 | NUR ---
PATIENT AWAKE. WANTS BIPAP OFF. PATIENT RIJ TLC DRESSING CHANGED DUE TO SMALL AMOUNT OF BLOOD DRAINAGE FROM SITE, DRIED BLOOD AT SITE INSERTION, PATIENT WAS GRABBING AT SITE. LINES FLUSH EASILY.
--- NOTE | 2020-11-02 04:51 | NUR ---
PATIENT FROM BIPAP TO NC 3L.
[2020-11-02 05:23] LABS: BUN 28 mg/dl (7-24); CHLORIDE 109 mmol/L (98-107); CREATININE 0.62 mg/dL (0.55-1.02); POTASSIUM 4.1 mmol/L (3.5-5.1); SODIUM 144 mmol/L (136-145)
[2020-11-02 06:05] LABS: HEMATOCRIT 33.8 % (37.0-47.0); MEAN CELL VOLUME 93.4 fl (81.0-99.0); MEAN CORPUSCULAR HGB 29.3 pg (27.0-31.0); MEAN CORPUSCULAR HGB CONC 31.4 g/dl (33.0-37.0); MEAN PLATELET VOLUME 10.7 fl (9.6-12.3); PLATELET COUNT AUTOMATED 324 10*3/uL (130-400); RED BLOOD COUNT 3.62 10*6/uL (4.10-5.10); RED CELL DISTRI WIDTH 14.5 % (0-14.5)
[2020-11-02 06:52] LABS: PLATELET SUFFICIENCY NORMAL (NORMAL); POLYCHROMASIA SLIGHT; TOTAL CELLS COUNTED 100 #CELLS
[2020-11-02 08:00] VITALS: BP 96/52
--- NOTE | 2020-11-02 08:00 | NUR ---
RIJ REMOVED AND A 22 GAUGE IV STARTED IN LEFT ARM.
--- NOTE | 2020-11-02 08:22 | NUR ---
TRANSFERRED TO ROOM 425 VIA BED. REPORT GIVEN TO JEFF VARGAS.
[2020-11-02 12:00] VITALS: BP 106/60
--- NOTE | 2020-11-02 15:17 | NUR ---
ZOFRAN AND CEPACOL GIVEN PER ORDER FOR SORE THROAT AND UPSET STOMACH. WILL MONITOR
[2020-11-02 16:00] VITALS: BP 100/40
--- NOTE | 2020-11-02 16:17 | NUR ---
PT MEDICATIONS EFFECTIVE. PT ASLEEP AT THIS TIME.
[2020-11-02 20:00] VITALS: BP 113/52
--- NOTE | 2020-11-02 20:55 | NUR ---
TOLERATED ROUTINE MED WITH NO PROBLEM. NO C/O AT THIS TIME. CALL LIGHT IN REACH. SEE SHIFT ASSESSMENT.
--- NOTE | 2020-11-02 22:05 | NUR ---
PT C/O NAUSEA, MEDICATED WITH ZOFRAN IV PER PRN ORDER, SEE EMAR. LOUISE BARTLETT IN TO SEE PT, AWARE MOUTH SORE. PT HAS SORENESS AND PATCHES ON TONGUE AND THROAT.
--- NOTE | 2020-11-02 22:20 | NUR ---
ASSISTED UP TO BEDSIDE COMMODE WITH MAX 2 ASSIST. PT STATES NAUSEA MEDICATION HELPED. NO NEW COMPLAINTS AT THIS TIME. CALL LIGHT IN REACH. BED ALARM ON.
[2020-11-03] VITALS: BP 113/52
--- NOTE | 2020-11-03 00:50 | NUR ---
PT REQUESTING SLEEP MEDICATION. MEDICATED WITH RESTORIL PO PER PRN ORDER, SEE EMAR. ALSO MEDICATED WITH NYSTATIN SWISH AND SWALLOW. SEE EMAR. CALL LIGHT IN REACH.
--- NOTE | 2020-11-03 01:41 | NUR ---
MEDICATED WITH ATIVAN IV PER PRN ORDER FOR ANXIETY. HR-70'S. RESP-20. WILL CON'T TO MONITOR. OXYGEN IN USE.
--- NOTE | 2020-11-03 02:10 | NUR ---
RESTING IN BED WITH EYES CLOSED. OXYGEN IN USE. RESP-EASY AND REGULAR. MEDICATION SEEMS TO BE EFFECTIVE. CALL LIGHT IN REACH.
--- NOTE | 2020-11-03 06:00 | NUR ---
PT SLEEPING IN BED, AWAKENS EASILY. DROWSY. TOLERATED ROUTINE MED WITH NO PROBLEM. CALL LIGHT IN REACH. BED ALARM ON.
[2020-11-03 06:10] LABS: MEAN CELL VOLUME 93.3 fl (81.0-99.0); MEAN CORPUSCULAR HGB 29.4 pg (27.0-31.0); MEAN CORPUSCULAR HGB CONC 31.6 g/dl (33.0-37.0); MEAN PLATELET VOLUME 10.4 fl (9.6-12.3); PLATELET COUNT AUTOMATED 274 10*3/uL (130-400); RED BLOOD COUNT 3.43 10*6/uL (4.10-5.10); RED CELL DISTRI WIDTH 14.4 % (0-14.5); WHITE BLOOD COUNT 16.5 10*3/uL (4.8-10.8)
--- NOTE | 2020-11-03 06:23 | NUR ---
CALLED DR. BELTRAN MADE AWARE PT IS ANXIOUS AND STATES SHE FEELS LIKE SHE IS GOING TO HAVE A NERVOUS BREAK DOWN PER PT. SHE WILL PUT SOMETHING IN .
[2020-11-03 06:37] LABS: ALBUMIN 2.2 gm/dl (3.1-4.5); BUN 20 mg/dl (7-24); CHLORIDE 109 mmol/L (98-107); POTASSIUM 3.8 mmol/L (3.5-5.1); SGOT/AST 22 IU/L (3-35); SODIUM 142 mmol/L (136-145)
[2020-11-03 06:39] LABS: ALKALINE PHOSPHATASE 66 U/L (45-117); CREATININE 0.59 mg/dL (0.55-1.02); LDH 210 U/L (84-246); SGPT/ALT 26 U/L (12-78)
[2020-11-03 07:01] LABS: BURR CELLS FEW; OVALOCYTES FEW; PLATELET SUFFICIENCY NORMAL (NORMAL); POLYCHROMASIA SLIGHT; TOTAL CELLS COUNTED 100 #CELLS
[2020-11-03 08:00] VITALS: BP 108/49
--- NOTE | 2020-11-03 08:00 | NUR ---
PATIENT RESTING IN BED. DENIES ANY NEEDS. ASSESSMENT COMPLETE. PATIENT STATES SHE FEELS CONSTIPATED. DENIES ANY OTHER COMPLAINTS. 2L NC IN PLACE. RESPS WNL. CALL LIGHT WITHIN REACH.
--- NOTE | 2020-11-03 09:57 | NUR ---
MEDICATED WITH PRN DULCOLAX FOR CO CONSTIPATION.
[2020-11-03 12:00] VITALS: BP 106/52
--- NOTE | 2020-11-03 14:01 | NUR ---
Shift chart check completed.
[2020-11-03 16:00] VITALS: BP 99/54
--- NOTE | 2020-11-03 16:50 | NUR ---
MEDICATED WITH PRN VISTARIL FO CO ANXIETY. WILL ASSESS EFFECTIVENESS.
--- NOTE | 2020-11-03 17:50 | NUR ---
VISTARIL HELPED PER PATIENT. PATIENT PULLED UP IN BED AND REPOSITIONED FOR COMFORT.
--- NOTE | 2020-11-03 19:02 | NUR ---
FAMILY UPDATED ON POC.
[2020-11-03 20:00] VITALS: BP 112/48
--- NOTE | 2020-11-03 20:40 | NUR ---
PT RESTING IN BED, REPOSITIONED IN BED. TOLERATED ROUTINE MED WITH NO PROBLEM. MEDICATED WITH RESTORIL PO FOR INSOMNIA, SEE EMAR. CALL LIGHT IN REACH.
--- NOTE | 2020-11-03 22:20 | NUR ---
PT RESTING IN BED. MEDICATED WITH VISTARIL PO FOR ANXIETY. SEE EMAR. CALL LIGHT IN REACH.
--- NOTE | 2020-11-03 23:00 | NUR ---
Pt is refusing BiPap. Pt does not feel the need for it.
--- NOTE | 2020-11-03 23:00 | NUR ---
RESTING INB ED WITH EYES CLOSED, AWAKENS EASILY. STATES MEDICATION HELPS SOME. CALL LIGHT IN REACH.
[2020-11-04] VITALS: BP 116/54
--- NOTE | 2020-11-04 00:15 | NUR ---
PT RESTING IN BED WITH EYES CLOSED. OXYGEN IN USE. RESP-EASY AND REGULAR. CALL LIGHT IN REACH.
--- NOTE | 2020-11-04 01:41 | NUR ---
C/O MOUTH PAIN, RATES PAIN 10 ON PAIN SCALE 0-10. MEDICATED WTIH TYLENOL PO PER PRN ORDER, SEE EMAR. ALSO MEDICATED WITH CEPACOL SEE EMAR. CALL LIGHT IN REACH. BED ALARM ON.
--- NOTE | 2020-11-04 02:15 | NUR ---
LYING IN BED WITH EYES CLOSED. MEDICATION SEEMS TO BE EFFECTIVE. CALL LIGHT IN REACH. BED ALARM ON.
--- NOTE | 2020-11-04 04:00 | NUR ---
RESTING IN BED WITH EYES CLOSED. RESP-EASY AND REGULAR. OXYGEN IN USE. CALL LIGHT IN REACH.
[2020-11-04 06:30] LABS: HEMATOCRIT 31.9 % (37.0-47.0); MEAN CORPUSCULAR HGB 29.2 pg (27.0-31.0); MEAN CORPUSCULAR HGB CONC 31.3 g/dl (33.0-37.0); MEAN PLATELET VOLUME 10.3 fl (9.6-12.3); PLATELET COUNT AUTOMATED 269 10*3/uL (130-400); RED BLOOD COUNT 3.43 10*6/uL (4.10-5.10); RED CELL DISTRI WIDTH 14.4 % (0-14.5); WHITE BLOOD COUNT 16.9 10*3/uL (4.8-10.8)
[2020-11-04 06:44] LABS: ALBUMIN 2.1 gm/dl (3.1-4.5); ALKALINE PHOSPHATASE 73 U/L (45-117); BUN 13 mg/dl (7-24); CHLORIDE 111 mmol/L (98-107); LDH 195 U/L (84-246); POTASSIUM 3.8 mmol/L (3.5-5.1); SGOT/AST 21 IU/L (3-35); SGPT/ALT 28 U/L (12-78); SODIUM 143 mmol/L (136-145); TOTAL PROTEIN 5.2 gm/dL (6.4-8.2)
[2020-11-04 07:15] LABS: PLATELET SUFFICIENCY NORMAL (NORMAL); TOTAL CELLS COUNTED 100 #CELLS
--- NOTE | 2020-11-04 07:53 | NUR ---
Patient referred to [facility]; updates faxed this morning; needs PT/OT orders for evals to complete referral. Notified hospitalists office.
[2020-11-04 08:00] VITALS: BP 106/53
--- NOTE | 2020-11-04 09:00 | NUR ---
Patient resting in bed. Respirations easy and regular on O2. Discomfort noted to tongue. Medicated with routine medication. Vital signs stable. No overt distress. Isolation precautions maintained. LUZ CONSTANTINO
--- NOTE | 2020-11-04 11:07 | NUR ---
case management spoke to patient on phone regarding discharge plan. educated her she has been referred to [facility] for short term care home. also educated her [facility] will provide 24 hour care and 5 days a week of therapy to increase strength so she is able return home when discharged. she was agreeable to this, she states she will talk with her family regarding SNF. case management will follow
[2020-11-04 12:00] VITALS: BP 106/53
--- NOTE | 2020-11-04 15:44 | NUR ---
PHYSICAL THERAPY Physical Therapy evaluation completed on 4E with full evaluation to follow. Moderate complexity skilled PT evaluation per chart review and evaluation, [id number]. Recommend physical therapy per plan of care and SNF upon discharge. Thank you for this referral. Erlinda Issa,PT,DPT
--- NOTE | 2020-11-04 15:45 | NUR ---
Occupational Therapy evaluation completed on four with full evaluation to follow. Recommend occupational therapy per plan of care and SNF upon discharge. Thank you for this referral. Isela Rivera OTR/L
[2020-11-04 16:00] VITALS: BP 99/46
[2020-11-04 20:00] VITALS: BP 100/50
--- NOTE | 2020-11-04 21:58 | NUR ---
PRN RESTORIL GIVEN FOR PT COMPLAINTS OF SLEEPLESSNESS. CALL LIGHT WITHIN REACH, WILL MONITOR
--- NOTE | 2020-11-04 22:50 | NUR ---
PRN MEDICATION INEFFECTIVE AT THIS TIME. PATIENT STATES HOPEFULLY IT WILL WORK LATER.
[2020-11-05] VITALS: BP 104/48
--- NOTE | 2020-11-05 02:47 | NUR ---
24 HR chart check completed.
--- NOTE | 2020-11-05 04:14 | NUR ---
PATIENT BACK IN AFIB AT THIS TIME. RATE CONTROLLED 80'S-90'S PER ANATOMY AND PHYSIOLOGY INSTRUCTOR. PATIENT ASYMPTOMATIC. CALL LIGHT WITHIN REACH, WILL MONITOR
--- NOTE | 2020-11-05 05:06 | NUR ---
NOTIFIED DR. XAVIER AT THIS TIME THAT PATIENT IS BACK INTO AFIB. NOTIFIED HER THAT CARDIZEM WAS HELD LAST NIGHT DUE TO BLOOD PRESSURE BEING ON THE LOWER SIDE. BUT THAT PATIENTS RATE WAS CONTROLLED AND THAT SHE HAS CARDIZEM DUE AT THIS TIME. SHE STATED THAT SHE WOULD LET THE DAY TEAM KNOW
[2020-11-05 08:00] VITALS: BP 90/63
--- NOTE | 2020-11-05 09:00 | NUR ---
PT MEDICATED WITH IV ZOFRAN AND PO VISTARIL PER PRN ORDER FOR C/O NAUSEA AND ANXIETY. BP CHECKED AT THIS TIME. BP 100/66. WILL CONTINUE TO MONITOR VITAL SIGNS. 02 IN USE. CALL LIGHT WITHIN REACH.
--- NOTE | 2020-11-05 09:00 | NUR ---
patient has been referred to [facility] when stable for discharge, case management will follow
[2020-11-05 09:28] VITALS: BP 100/66
--- NOTE | 2020-11-05 10:12 | NUR ---
Patient is accepted to [facility] however patient must be on regular diet and tolerating well prior to discharge.
[2020-11-05 12:00] VITALS: BP 97/50
--- NOTE | 2020-11-05 13:48 | NUR ---
OT NOTE Pt was seen this P.M. 1:1 for 18 minute OT session. Upon arrival pt was supine in bed. Pt identified by name and and had complaints of 10/10 L foot pain. Pt presented to therapy with continuous 1L-O2 via NC which she remained on throughout the entire session. Pt transferred supine to sit EOB after much encouragement with CGA. Pt completed two sit to stand transfers from bed level with CGA and use of w/w for UE support. Challenged pt's static standing tolerance needed for increased I in self care tasks and functional transfers. Pt was able to tolerate aprox 10-15 seconds at a time before sitting due to pain in her L foot and reports of fatigue. While sitting EOB pt then completed BUE towel exercises with min resistance over all planes for 1 X 10 to increase and restore maximum functional strength. Pt transferred back into bed sit to supine with SBA and was then repositioned in bed with maxA X 2. There she was left with call light in hand, tray table in place, and bed alarm activated for safety. Continue with rec D/C plan to SNF. Throughout the entire session airborne precautions were maintained. HERMINIA Garcia/Mickey
--- NOTE | 2020-11-05 14:16 | NUR ---
PATIENT NOW IN NSR AGAIN. WILL CONTINUE TO MONITOR HR.
--- NOTE | 2020-11-05 14:47 | NUR ---
PHYSICAL THERAPY Patient presented to therapy in supine in bed with head of bed elevated and bed alarm on. Patient gives informed consent for treatment. Patient was identified by name and on wristband. Patient is + covid 19. Patient reports fatigue and not well. Patient is not on spO2, IVs and doesn't have a catheter. Patient performed supine > sitting on EOB with SBA. Patient sat on EOB with SBA, except for an occassional LOB ,which required CGA to correct to upright posture. Patient completed STS from EOB with MOD A X 2 . Patient stood at Walker for < 30 seconds for 3 seperate times with CGA. Patient was unable to gait due to pain in the L LE and being weak and fatigued. Patient performed seated LAQs, marches and heel/toe raises x 10 reps each for strengthening. Patient completed sitting on EOB > supine in bed with SBA. Patient was moved up to head of bed with sheet and MAX A X 2. Patient was left in supine in bed with head of bed elevated, call light within reach and bed alarm on. Patient was 1:1 with this DRILLING SUPERINTENDENT for 18 minutes total. KATHRINE FLORENCE DRILLING SUPERINTENDENT
[2020-11-05 16:00] VITALS: BP 104/44
[2020-11-05 20:02] VITALS: BP 104/56; BP 87/46
--- NOTE | 2020-11-05 20:46 | NUR ---
ADMINISTERED FOR ANXIETY.
--- NOTE | 2020-11-05 21:46 | NUR ---
PER PATIENT, VISTERAL GIVEN FOR ANXIETY WAS EFFECTIVE.
--- NOTE | 2020-11-05 23:41 | NUR ---
PRN ZOFRAN GIVEN FOR PT COMPLAINTS OF NAUSEA. STATES THAT THE NYSTATIN GIVES HER AN UPSET STOMACH. CALL LIGHT NICK MENDEZ, WILL MONITOR
[2020-11-06] VITALS: BP 110/45
[2020-11-06 06:18] VITALS: BP 106/49
[2020-11-06 06:20] LABS: MEAN CORPUSCULAR HGB 29.5 pg (27.0-31.0); MEAN CORPUSCULAR HGB CONC 31.3 g/dl (33.0-37.0); MEAN PLATELET VOLUME 10.2 fl (9.6-12.3); PLATELET COUNT AUTOMATED 299 10*3/uL (130-400); RED BLOOD COUNT 3.19 10*6/uL (4.10-5.10); RED CELL DISTRI WIDTH 14.6 % (0-14.5); WHITE BLOOD COUNT 12.6 10*3/uL (4.8-10.8)
--- NOTE | 2020-11-06 07:31 | NUR ---
Updates faxed to [facility], notified patient is now on regular diet. Precert has been started, waiting on auth.
[2020-11-06 07:46] LABS: BASOPHILS 1 % (0-1); PLATELET SUFFICIENCY NORMAL (NORMAL); TOTAL CELLS COUNTED 100 #CELLS
[2020-11-06 08:00] VITALS: BP 108/50
--- NOTE | 2020-11-06 08:30 | NUR ---
DURING ASSESSMENT, 2 REDDENED AREAS FOUND TO LEFT & RIGHT BUTTOCKS. WOUND DOCUMENTATION AND PHOTOS OBTAINED PER POLICY. WOUND CARE NURSE NOTIFIED.
--- NOTE | 2020-11-06 09:00 | NUR ---
case management talks with patient on phone, educated her that [facility] has accepted her and she can be discharged to there when stable, patient was in agreement. case management will follow
--- NOTE | 2020-11-06 10:02 | NUR ---
PT MEDICATED WITH IV ZOFRAN AND VISTARIL PER PRN ORDER FOR C/O NAUSEA AND ANXIETY. WILL MONITOR EFFECTIVENESS OF MEDS. CALL LIGHT WITHIN REACH.
--- NOTE | 2020-11-06 10:26 | NUR ---
OT NOTE Pt was seen this A.M. 1:1 for 24 minute OT session. Upon arrival pt was supine in bed. Pt identified by name and and had complaints of L foot pain which she was unable to rate on 0-10 pain scale. Pt presented to therapy with continuous 1L-O2 via NC which she remained on throughout the entire session. Pt transferred supine to sit EOB with Susie for assist with upper body. Pt completed multiple sit to stand transfers from bed level with CGA and use of w/w for UE support. Challenged pt's static standing tolerance needed for increased I in self care tasks and functional transfers. Pt was able to tolerate aprox 30-45 seconds at a time before sitting due to pain in her L foot. After a seated rest break pt then completed standing pivot transfer from the EOB to the bedside commode with CGA and use of w/w. While sitting EOB pt completed BUE towel exercises over all planes for 1 X 10 with min resistance to increase and restore maximum functional use and strength. Pt then transferred back into bed sit to supine with SBA. There she was left with call light in hand, tray table in place, and bed alarm activated for safety. Continue with rec D/C plan to SNF. Throughout the entire session airborne precautions were maintained. HERMINIA Garcia/Mickey
--- NOTE | 2020-11-06 11:02 | NUR ---
ZOFRAN AND VISTARIL EFFECTIVE PER PT. WILL CONTINUE TO MONITOR.
[2020-11-06 12:00] VITALS: BP 95/48
--- NOTE | 2020-11-06 12:10 | NUR ---
Patient has received auth for [facility] and is ok to go if medically stable. this auth is good until Wednesday. Hospitalists notified.
--- NOTE | 2020-11-06 12:46 | NUR ---
PHYSICAL THERAPY Patient presented to therapy in supine in bed with head of bed elevated and bed alarm off. Patient gives informed consent for treatment. Patient was identified by name and on wristband. Patient was on 1 liter of spO2 via nasal canula. Patient performed supine > sittign on EOB with SBA. Patient sat on EOB with SBA. Patient performed STS from EOB with CGA - SBA. Patient stood for 1 minute at Walker with CGA and then sat due to fatigue. Patient STS again from EOB and patient stood for 30 sec or > with SBA. Patient performed another STS from Sitting EOB with SBA. Patient completed SPT < > bedside chair with CGA. Patient performed LAQs, marches and heel/toe raises x 10 reps each in sitting on EOB for strengthening the LEs. Patient completed sitting on EOB to supine in bed with SBA. Patient was 1:1 with this LINE TENDER FLAKE[employer]ARD for 19 minutes total. PPE donned and doffed as per COVID 19 PROTOCOL for airborne precautions. MICHAEL FLORENCE LINE TENDER FLAKE[employer]ARD
[2020-11-06] MEDS ORDERED: FLUCONAZOLE100 MG PO (12:56)
[2020-11-06] MEDS ORDERED: DILTIAZEM HCL90 MG PO (12:56)
[2020-11-06] MEDS ORDERED: ATARAX,VISTARIL50 MG PO (12:56)
[2020-11-06] MEDS ORDERED: ELIQUIS5 M1 PO (12:56)
--- NOTE | 2020-11-06 14:28 | NUR ---
Discharge instructions reviewed with patient. Patient receptive and verbalizes understanding. Follow-up care arranged. Written instructions given to patient. SAMY NOEL
--- NOTE | 2020-11-06 14:29 | NUR ---
PATIENT REFUSING DISCHARGE PHOTOS.
--- NOTE | 2020-11-06 14:33 | NUR ---
Patient is discharged to [facility] via [facility] at 4 PM. NH, nursing, freight forwarder and all notified.
--- NOTE | 2020-11-06 15:54 | NUR ---
OCCUPATIONAL THERAPY CO-SIGN I approve of the Occupational Therapy notes written above. Isela Rivera, OTR/L
--- NOTE | 2020-11-06 16:06 | NUR ---
PHYSICAL THERAPY CO-SIGN I approve of the Physical Therapy notes written above. [place] COCHRAN PT, DPT
--- NOTE | 2020-11-06 16:18 | NUR ---
AMBULANCE HERE TO TRANSPORT PATIENT TO [facility] PER ORDER. NURSE TO NURSE REPORT GIVEN. BELONGINGS WITH PATIENT.
[2020-11-08 09:09] LABS: ORGANISM ID, MOLD Final report (.)
== END 2020-11-06 16:18 | disposition other institution (70) | DRG 870 ==
LOC: ED 16:15 → EDHOLD 17:38 → 4E 17:38 → ICCU 10-24 22:58 → 4E 11-02 08:07
PROVIDERS: Emergency Medicine; Hospitalist; Internal Medicine; Internal Medicine Critical Care Medicine; Social Worker Clinical; Student in an Organized Health Care Education/Training Program; ADMIT Family Medicine; ATTEND Family Medicine
PROC: 5A09357 Assistance with Respiratory Ventilation, Less than 24 Consecutive Hours, Continuous Positive Airway Pressure (ICD-10-PCS; 2020-10-19)
PROC: 5A09357 Assistance with Respiratory Ventilation, Less than 24 Consecutive Hours, Continuous Positive Airway Pressure (ICD-10-PCS; 2020-10-20)
PROC: 5A09557 Assistance with Respiratory Ventilation, Greater than 96 Consecutive Hours, Continuous Positive Airway Pressure (ICD-10-PCS; 2020-10-20)
PROC: XW033E5 Introduction of Remdesivir Anti-infective into Peripheral Vein, Percutaneous Approach, New Technology Group 5 (ICD-10-PCS; 2020-10-22)
PROC: 5A0945A Assistance with Respiratory Ventilation, 24-96 Consecutive Hours, High Flow/Velocity Cannula (ICD-10-PCS; 2020-10-25)
PROC: 5A1955Z Respiratory Ventilation, Greater than 96 Consecutive Hours (ICD-10-PCS; principal; 2020-10-26)
PROC: 0BH18EZ Insertion of Endotracheal Airway into Trachea, Via Natural or Artificial Opening Endoscopic (ICD-10-PCS; 2020-10-26)
PROC: 03HY33Z Insertion of Infusion Device into Upper Artery, Percutaneous Approach (ICD-10-PCS; 2020-10-26)
PROC: B34HZZZ Ultrasonography of Right Upper Extremity Arteries (ICD-10-PCS; 2020-10-26)
PROC: 02HV33Z Insertion of Infusion Device into Superior Vena Cava, Percutaneous Approach (ICD-10-PCS; 2020-10-26)
PROC: B548ZZA Ultrasonography of Superior Vena Cava, Guidance (ICD-10-PCS; 2020-10-26)
PROC: 0BC98ZZ Extirpation of Matter from Lingula Bronchus, Via Natural or Artificial Opening Endoscopic (ICD-10-PCS; 2020-10-30)
PROC: 0BC48ZZ Extirpation of Matter from Right Upper Lobe Bronchus, Via Natural or Artificial Opening Endoscopic (ICD-10-PCS; 2020-10-30)
PROC: 0BC88ZZ Extirpation of Matter from Left Upper Lobe Bronchus, Via Natural or Artificial Opening Endoscopic (ICD-10-PCS; 2020-10-30)
PROC: 0BC58ZZ Extirpation of Matter from Right Middle Lobe Bronchus, Via Natural or Artificial Opening Endoscopic (ICD-10-PCS; 2020-10-30)
PROC: 0BC38ZZ Extirpation of Matter from Right Main Bronchus, Via Natural or Artificial Opening Endoscopic (ICD-10-PCS; 2020-10-30)
PROC: 0BC78ZZ Extirpation of Matter from Left Main Bronchus, Via Natural or Artificial Opening Endoscopic (ICD-10-PCS; 2020-10-30)
PROC: 0BC68ZZ Extirpation of Matter from Right Lower Lobe Bronchus, Via Natural or Artificial Opening Endoscopic (ICD-10-PCS; 2020-10-30)
PROC: 0BC18ZZ Extirpation of Matter from Trachea, Via Natural or Artificial Opening Endoscopic (ICD-10-PCS; 2020-10-30)
PROC: 0BCB8ZZ Extirpation of Matter from Left Lower Lobe Bronchus, Via Natural or Artificial Opening Endoscopic (ICD-10-PCS; 2020-10-30)
PROC: 5A09357 Assistance with Respiratory Ventilation, Less than 24 Consecutive Hours, Continuous Positive Airway Pressure (ICD-10-PCS; 2020-10-31)
PROC: 5A09357 Assistance with Respiratory Ventilation, Less than 24 Consecutive Hours, Continuous Positive Airway Pressure (ICD-10-PCS; 2020-11-02)
DX: A41.89 Other specified sepsis (principal); U07.1 COVID-19; E43 Unspecified severe protein-calorie malnutrition; J80 Acute respiratory distress syndrome; J12.82 Pneumonia due to coronavirus disease 2019; J15.9 Unspecified bacterial pneumonia; E87.1 Hypo-osmolality and hyponatremia; E87.2 Acidosis; N39.0 Urinary tract infection, site not specified; B37.0 Candidal stomatitis; T17.590A Other foreign object in bronchus causing asphyxiation, initial encounter; J44.0 Chronic obstructive pulmonary disease with (acute) lower respiratory infection; D68.59 Other primary thrombophilia; I48.92 Unspecified atrial flutter; E87.6 Hypokalemia; Z20.828 Contact with and (suspected) exposure to other viral communicable diseases; I10 Essential (primary) hypertension; K21.9 Gastro-esophageal reflux disease without esophagitis; R74.02 Elevation of levels of lactic acid dehydrogenase [LDH]; E66.9 Obesity, unspecified; D64.9 Anemia, unspecified; D72.821 Monocytosis (symptomatic); E87.8 Other disorders of electrolyte and fluid balance, not elsewhere classified; E83.41 Hypermagnesemia; R73.9 Hyperglycemia, unspecified; B96.20 Unspecified Escherichia coli [E. coli] as the cause of diseases classified elsewhere; M19.90 Unspecified osteoarthritis, unspecified site; X58.XXXA Exposure to other specified factors, initial encounter; I48.0 Paroxysmal atrial fibrillation; I95.89 Other hypotension; E78.00 Pure hypercholesterolemia, unspecified; Z79.1 Long term (current) use of non-steroidal anti-inflammatories (NSAID); Z79.899 Other long term (current) drug therapy; Z90.710 Acquired absence of both cervix and uterus; Z79.01 Long term (current) use of anticoagulants; Z87.891 Personal history of nicotine dependence; Z82.49 Family history of ischemic heart disease and other diseases of the circulatory system; Z80.41 Family history of malignant neoplasm of ovary; Y93.89 Activity, other specified; Y92.89 Other specified places as the place of occurrence of the external cause; Y99.8 Other external cause status; Z68.32 Body mass index [BMI] 32.0-32.9, adult; Z79.51 Long term (current) use of inhaled steroids

== ENCOUNTER → 2020-11-22 | Outpatient (CLI) | payer OTHER ==
[~2020-11-22] MED LIST changes: +ATARAX,VISTARIL50 MG PO; +DILTIAZEM HCL90 MG PO; +ELIQUIS5 M1 PO; +FLUCONAZOLE100 MG PO; +HYDROCODONE/HO473 ML PO; +MONTELUKAST SOD10 MG PO; +Synthroid,Levo25 MCG PO
== END | disposition home or self-care (01) ==
LOC: RESCLI 00:55
PROVIDERS: ATTEND Internal Medicine
DX: J30.9 Allergic rhinitis, unspecified (principal); I10 Essential (primary) hypertension; J44.9 Chronic obstructive pulmonary disease, unspecified; J45.909 Unspecified asthma, uncomplicated; E78.5 Hyperlipidemia, unspecified; K21.9 Gastro-esophageal reflux disease without esophagitis; E55.9 Vitamin D deficiency, unspecified; E03.9 Hypothyroidism, unspecified; Z86.16 Personal history of COVID-19; Z79.899 Other long term (current) drug therapy

== ENCOUNTER → 2020-12-04 | Outpatient (CLI) | payer OTHER | END | disposition home or self-care (01) | LOC: RAD 12:28 | PROVIDERS: ATTEND Nurse Practitioner Family | DX: J06.9 Acute upper respiratory infection, unspecified (principal); U07.1 COVID-19; E87.6 Hypokalemia; R79.82 Elevated C-reactive protein (CRP); I48.91 Unspecified atrial fibrillation; E87.1 Hypo-osmolality and hyponatremia ==

== ENCOUNTER → 2020-12-19 | Outpatient (CLI) | payer OTHER | END | disposition home or self-care (01) | LOC: CARD 12-18 10:30 | PROVIDERS: ATTEND Registered Nurse | DX: I48.0 Paroxysmal atrial fibrillation (principal); Z86.16 Personal history of COVID-19 ==

== ENCOUNTER → 2020-12-27 | Outpatient (CLI) | payer OTHER | END | disposition home or self-care (01) | LOC: RESCLI 01:12 | PROVIDERS: ATTEND Internal Medicine | DX: F41.9 Anxiety disorder, unspecified (principal); F32.9 Major depressive disorder, single episode, unspecified; I10 Essential (primary) hypertension; J44.9 Chronic obstructive pulmonary disease, unspecified; J45.909 Unspecified asthma, uncomplicated; E78.5 Hyperlipidemia, unspecified; K21.9 Gastro-esophageal reflux disease without esophagitis; E55.9 Vitamin D deficiency, unspecified; E03.9 Hypothyroidism, unspecified; F43.21 Adjustment disorder with depressed mood; Z86.16 Personal history of COVID-19; Z79.899 Other long term (current) drug therapy; Z90.710 Acquired absence of both cervix and uterus; Z87.891 Personal history of nicotine dependence; Z88.8 Allergy status to other drugs, medicaments and biological substances ==

== ENCOUNTER → 2021-03-05 | Outpatient (CLI) | payer OTHER | END | disposition home or self-care (01) | LOC: RESCLI 03:26 | PROVIDERS: ATTEND Internal Medicine Nephrology | DX: F41.9 Anxiety disorder, unspecified (principal); F32.9 Major depressive disorder, single episode, unspecified; I10 Essential (primary) hypertension; J44.9 Chronic obstructive pulmonary disease, unspecified; J45.909 Unspecified asthma, uncomplicated; E78.5 Hyperlipidemia, unspecified; K21.9 Gastro-esophageal reflux disease without esophagitis; E55.9 Vitamin D deficiency, unspecified; E03.9 Hypothyroidism, unspecified; Z79.899 Other long term (current) drug therapy; Z90.710 Acquired absence of both cervix and uterus; Z98.51 Tubal ligation status ==

== ENCOUNTER → 2021-03-19 | Outpatient (CLI) | payer OTHER | END | disposition home or self-care (01) | LOC: CARD 09:28 | PROVIDERS: ATTEND Internal Medicine Cardiovascular Disease | DX: I49.1 Atrial premature depolarization (principal); I49.3 Ventricular premature depolarization; R00.0 Tachycardia, unspecified; I48.0 Paroxysmal atrial fibrillation ==

== ENCOUNTER → 2021-07-02 | Outpatient (CLI) | payer OTHER | END | disposition home or self-care (01) | LOC: RESCLI 01:34 | PROVIDERS: ATTEND Internal Medicine Nephrology | DX: I11.0 Hypertensive heart disease with heart failure (principal); I50.33 Acute on chronic diastolic (congestive) heart failure; E78.2 Mixed hyperlipidemia; J44.9 Chronic obstructive pulmonary disease, unspecified; J30.9 Allergic rhinitis, unspecified; D50.9 Iron deficiency anemia, unspecified; G62.9 Polyneuropathy, unspecified; F32.9 Major depressive disorder, single episode, unspecified; I48.0 Paroxysmal atrial fibrillation; Z79.899 Other long term (current) drug therapy ==

== ENCOUNTER → 2021-07-16 | Outpatient (CLI) | payer OTHER | END | disposition home or self-care (01) | LOC: RESCLI 02:42 | PROVIDERS: ATTEND Internal Medicine Nephrology | DX: I50.33 Acute on chronic diastolic (congestive) heart failure (principal); E78.5 Hyperlipidemia, unspecified; K21.9 Gastro-esophageal reflux disease without esophagitis; I11.0 Hypertensive heart disease with heart failure; Z91.09 Other allergy status, other than to drugs and biological substances; Z90.710 Acquired absence of both cervix and uterus; Z86.16 Personal history of COVID-19; Z98.51 Tubal ligation status; Z79.891 Long term (current) use of opiate analgesic; Z79.899 Other long term (current) drug therapy ==

== ENCOUNTER 2021-08-23 12:27 | Emergency (ER) | payer OTHER ==
[~2021-08-23] VITALS: Ht 154.9 cm; Wt 81.6 kg
[2021-08-23 16:11] VITALS: BP 142/69
[2021-08-23] MEDS ORDERED: HYDROCODONE-AC1 EAC1 PO (16:25)
[2021-08-23] MEDS ORDERED: MIRALAX POWDER17 G1 PO (16:25)
== END 2021-08-23 16:45 | disposition home or self-care (01) ==
LOC: ED 12:27
DX: S52.501A Unspecified fracture of the lower end of right radius, initial encounter for closed fracture (principal); S52.611A Displaced fracture of right ulna styloid process, initial encounter for closed fracture; J44.9 Chronic obstructive pulmonary disease, unspecified; M19.90 Unspecified osteoarthritis, unspecified site; I10 Essential (primary) hypertension; K21.9 Gastro-esophageal reflux disease without esophagitis; E78.5 Hyperlipidemia, unspecified; E44.0 Moderate protein-calorie malnutrition; Z79.899 Other long term (current) drug therapy; Z68.30 Body mass index [BMI] 30.0-30.9, adult; Z90.711 Acquired absence of uterus with remaining cervical stump; Z98.51 Tubal ligation status; Z87.891 Personal history of nicotine dependence; W01.0XXA Fall on same level from slipping, tripping and stumbling without subsequent striking against object, initial encounter; Y93.89 Activity, other specified; Y92.89 Other specified places as the place of occurrence of the external cause; Y99.8 Other external cause status

== ENCOUNTER → 2021-09-01 | Outpatient (CLI) | payer OTHER ==
[~2021-09-01] MED LIST changes: +HYDROCODONE-AC1 EAC1 PO; +MIRALAX POWDER17 G1 PO
== END | disposition home or self-care (01) ==
LOC: ORTHO 00:20
PROVIDERS: ATTEND Orthopaedic Surgery
DX: S52.531D Colles' fracture of right radius, subsequent encounter for closed fracture with routine healing (principal); X58.XXXD Exposure to other specified factors, subsequent encounter

== ENCOUNTER → 2021-09-08 | Outpatient (CLI) | payer OTHER | END | disposition home or self-care (01) | LOC: ORTHO 01:52 | PROVIDERS: ATTEND Orthopaedic Surgery | DX: S52.531D Colles' fracture of right radius, subsequent encounter for closed fracture with routine healing (principal); X58.XXXD Exposure to other specified factors, subsequent encounter ==

== ENCOUNTER → 2021-09-29 | Outpatient (CLI) | payer OTHER | END | disposition home or self-care (01) | LOC: ORTHO 00:30 | PROVIDERS: ATTEND Orthopaedic Surgery | DX: S52.531D Colles' fracture of right radius, subsequent encounter for closed fracture with routine healing (principal); M19.031 Primary osteoarthritis, right wrist; M85.831 Other specified disorders of bone density and structure, right forearm; X58.XXXD Exposure to other specified factors, subsequent encounter ==

== ENCOUNTER → 2021-10-14 | Outpatient (CLI) | payer OTHER | END | disposition home or self-care (01) | LOC: RAD 16:21 | PROVIDERS: ATTEND Nurse Practitioner Family | DX: J44.9 Chronic obstructive pulmonary disease, unspecified (principal); R09.81 Nasal congestion; R05.9 Cough, unspecified; J20.9 Acute bronchitis, unspecified ==

== ENCOUNTER → 2021-10-22 | Outpatient (CLI) | payer OTHER | END | disposition home or self-care (01) | LOC: RESCLI 03:44 | PROVIDERS: ATTEND Internal Medicine Nephrology | DX: K21.9 Gastro-esophageal reflux disease without esophagitis (principal); E03.9 Hypothyroidism, unspecified; F32.9 Major depressive disorder, single episode, unspecified; I50.33 Acute on chronic diastolic (congestive) heart failure; D50.9 Iron deficiency anemia, unspecified; J44.9 Chronic obstructive pulmonary disease, unspecified; J30.9 Allergic rhinitis, unspecified; I11.0 Hypertensive heart disease with heart failure; E78.5 Hyperlipidemia, unspecified; Z79.899 Other long term (current) drug therapy; Z98.890 Other specified postprocedural states ==

== ENCOUNTER → 2022-01-06 | Outpatient (CLI) | payer OTHER | END | disposition home or self-care (01) | LOC: RAD 14:29 | PROVIDERS: ATTEND Nurse Practitioner Family | DX: J44.1 Chronic obstructive pulmonary disease with (acute) exacerbation (principal); Z86.16 Personal history of COVID-19 ==

== ENCOUNTER → 2022-02-24 | Outpatient (CLI) | payer OTHER | END | disposition home or self-care (01) | LOC: RAD 11:42 | PROVIDERS: ATTEND Nurse Practitioner Family | DX: J44.0 Chronic obstructive pulmonary disease with (acute) lower respiratory infection (principal); M51.34 Other intervertebral disc degeneration, thoracic region ==

== ENCOUNTER → 2022-04-22 | Outpatient (CLI) | payer OTHER | END | disposition home or self-care (01) | LOC: RESCLI 00:51 | PROVIDERS: ATTEND Internal Medicine Nephrology | DX: J44.9 Chronic obstructive pulmonary disease, unspecified (principal); K21.9 Gastro-esophageal reflux disease without esophagitis; E03.9 Hypothyroidism, unspecified; E78.2 Mixed hyperlipidemia; G62.9 Polyneuropathy, unspecified; J30.9 Allergic rhinitis, unspecified; I48.0 Paroxysmal atrial fibrillation; I10 Essential (primary) hypertension; F41.9 Anxiety disorder, unspecified; E55.9 Vitamin D deficiency, unspecified; Z79.899 Other long term (current) drug therapy; Z88.8 Allergy status to other drugs, medicaments and biological substances ==

== ENCOUNTER → 2022-07-09 | Outpatient (CLI) | payer OTHER ==
[2022-07-09 11:42] LABS: BASO # 0.1 10*3/uL (0.0-0.1); BASO % 1.1 % (0.0-1.0); EOS # 0.3 10*3/uL (0.0-0.4); HEMATOCRIT 42.4 % (37.0-47.0); LYMPH # 2.4 10*3/uL (1.3-4.4); LYMPH % 27.9 % (27.0-41.0); MEAN CELL VOLUME 98.8 fl (81.0-99.0); MEAN CORPUSCULAR HGB 31.7 pg (27.0-31.0); MEAN CORPUSCULAR HGB CONC 32.1 g/dl (33.0-37.0); MEAN PLATELET VOLUME 9.7 fl (9.6-12.3); MONO # 0.9 10*3/uL (0.1-1.0); MONO % 10.1 % (3.0-9.0); NEUT # 4.7 10*3/uL (2.3-7.9); NEUT % 56.4 % (47.0-73.0); PLATELET COUNT AUTOMATED 351 10*3/uL (130-400); RED BLOOD COUNT 4.29 10*6/uL (4.10-5.10); RED CELL DISTRI WIDTH 13.2 % (0-14.5); WHITE BLOOD COUNT 8.4 10*3/uL (4.8-10.8)
[2022-07-09 12:00] LABS: BUN 9 mg/dl (7-24); CHLORIDE 111 mmol/L (98-107); CREATININE 0.73 mg/dL (0.55-1.02); POTASSIUM 4.4 mmol/L (3.5-5.1); SGPT/ALT 18 U/L (12-78); SODIUM 142 mmol/L (136-145)
[2022-07-09 12:03] LABS: ALKALINE PHOSPHATASE 158 U/L (45-117); CHOLESTEROL 187 mg/dL (<200); LDL CHOLESTEROL 104 mg/dL (9-159); SGOT/AST 13 IU/L (3-35); TOTAL PROTEIN 7.3 gm/dL (6.4-8.2); TRIGLYCERIDES 123 mg/dl (<150)
== END | disposition home or self-care (01) ==
LOC: LAB 11:19
PROVIDERS: ATTEND Nurse Practitioner Family
DX: I10 Essential (primary) hypertension (principal); E78.5 Hyperlipidemia, unspecified; D50.9 Iron deficiency anemia, unspecified

== ENCOUNTER → 2022-07-27 | Outpatient (CLI) | payer OTHER | END | disposition home or self-care (01) | LOC: ORTHO 00:32 | PROVIDERS: ATTEND Orthopaedic Surgery | DX: M17.12 Unilateral primary osteoarthritis, left knee (principal); M11.262 Other chondrocalcinosis, left knee ==

== ENCOUNTER → 2022-11-03 | Outpatient (CLI) | payer OTHER | END | disposition home or self-care (01) | LOC: RESCLI 13:08 | PROVIDERS: ATTEND Internal Medicine | DX: J44.9 Chronic obstructive pulmonary disease, unspecified (principal); E53.8 Deficiency of other specified B group vitamins; K21.9 Gastro-esophageal reflux disease without esophagitis; J30.9 Allergic rhinitis, unspecified; G62.9 Polyneuropathy, unspecified; E55.9 Vitamin D deficiency, unspecified; I48.0 Paroxysmal atrial fibrillation; I10 Essential (primary) hypertension; R05.3 Chronic cough; E78.2 Mixed hyperlipidemia; E03.9 Hypothyroidism, unspecified; Z90.710 Acquired absence of both cervix and uterus; Z98.890 Other specified postprocedural states; Z82.49 Family history of ischemic heart disease and other diseases of the circulatory system; Z87.891 Personal history of nicotine dependence; Z88.8 Allergy status to other drugs, medicaments and biological substances; Z79.899 Other long term (current) drug therapy ==

== ENCOUNTER → 2023-02-12 | Outpatient (CLI) | payer OTHER ==
[2023-02-12 11:53] LABS: BASO # 0.1 10*3/uL (0.0-0.1); BASO % 1.2 % (0.0-1.0); EOS # 0.4 10*3/uL (0.0-0.4); EOS % 4.7 % (1.0-4.0); HEMATOCRIT 42.2 % (37.0-47.0); LYMPH # 2.9 10*3/uL (1.3-4.4); LYMPH % 35.4 % (27.0-41.0); MEAN CELL VOLUME 96.8 fl (81.0-99.0); MEAN CORPUSCULAR HGB 31.9 pg (27.0-31.0); MEAN CORPUSCULAR HGB CONC 32.9 g/dl (33.0-37.0); MEAN PLATELET VOLUME 9.7 fl (9.6-12.3); MONO # 0.8 10*3/uL (0.1-1.0); MONO % 9.7 % (3.0-9.0); NEUT % 48.8 % (47.0-73.0); PLATELET COUNT AUTOMATED 348 10*3/uL (130-400); RED BLOOD COUNT 4.36 10*6/uL (4.10-5.10); RED CELL DISTRI WIDTH 12.5 % (0-14.5); WHITE BLOOD COUNT 8.3 10*3/uL (4.8-10.8)
[2023-02-12 12:21] LABS: ALKALINE PHOSPHATASE 144 U/L (46-116); BUN 9 mg/dl (9-23); CHLORIDE 107 mmol/L (98-107); CHOLESTEROL 196 mg/dL (<200); LDL CHOLESTEROL 123 mg/dL (9-159); POTASSIUM 3.6 mmol/L (3.4-5.1); TRIGLYCERIDES 103 mg/dl (<150)
[2023-02-12 12:25] LABS: SGPT/ALT < 7 U/L (10-49)
== END | disposition home or self-care (01) ==
LOC: LAB 11:14
PROVIDERS: ATTEND Nurse Practitioner Family
DX: I10 Essential (primary) hypertension (principal); E78.5 Hyperlipidemia, unspecified; E03.9 Hypothyroidism, unspecified; J44.1 Chronic obstructive pulmonary disease with (acute) exacerbation

== ENCOUNTER → 2023-04-08 | Outpatient (CLI) | payer OTHER | END | disposition home or self-care (01) | LOC: RESCLI 00:55 | PROVIDERS: ATTEND Internal Medicine | DX: K21.9 Gastro-esophageal reflux disease without esophagitis (principal); I10 Essential (primary) hypertension; E78.5 Hyperlipidemia, unspecified; E53.8 Deficiency of other specified B group vitamins; J30.9 Allergic rhinitis, unspecified; G62.9 Polyneuropathy, unspecified; E55.9 Vitamin D deficiency, unspecified; J44.9 Chronic obstructive pulmonary disease, unspecified; I48.0 Paroxysmal atrial fibrillation; R05.3 Chronic cough; E78.2 Mixed hyperlipidemia; E03.9 Hypothyroidism, unspecified; F41.9 Anxiety disorder, unspecified; Z98.890 Other specified postprocedural states; Z90.710 Acquired absence of both cervix and uterus; Z90.721 Acquired absence of ovaries, unilateral; Z82.49 Family history of ischemic heart disease and other diseases of the circulatory system; Z83.6 Family history of other diseases of the respiratory system; Z80.41 Family history of malignant neoplasm of ovary; Z87.891 Personal history of nicotine dependence; Z79.899 Other long term (current) drug therapy; Z91.09 Other allergy status, other than to drugs and biological substances ==

== ENCOUNTER 2023-04-19 16:49 | Inpatient (IN) | payer OTHER ==
[~2023-04-19] VITALS: Ht 152.4 cm; Wt 78.2 kg
[2023-04-19 17:15] VITALS: BP 148/98
[2023-04-19 17:40] VITALS: BP 142/70
[2023-04-19 18:00] LABS: BASO # 0.1 10*3/uL (0.0-0.1); BASO % 0.6 % (0.0-1.0); EOS # 0.3 10*3/uL (0.0-0.4); EOS % 1.9 % (1.0-4.0); HEMATOCRIT 40.7 % (37.0-47.0); LYMPH # 2.9 10*3/uL (1.3-4.4); LYMPH % 20.9 % (27.0-41.0); MEAN CELL VOLUME 98.8 fl (81.0-99.0); MEAN CORPUSCULAR HGB 31.6 pg (27.0-31.0); MEAN CORPUSCULAR HGB CONC 31.9 g/dl (33.0-37.0); MEAN PLATELET VOLUME 9.4 fl (9.6-12.3); MONO # 1.1 10*3/uL (0.1-1.0); MONO % 8.2 % (3.0-9.0); NEUT # 9.3 10*3/uL (2.3-7.9); NEUT % 67.8 % (47.0-73.0); PLATELET COUNT AUTOMATED 336 10*3/uL (130-400); RED BLOOD COUNT 4.12 10*6/uL (4.10-5.10); RED CELL DISTRI WIDTH 13.5 % (0-14.5); WHITE BLOOD COUNT 13.7 10*3/uL (4.8-10.8)
[2023-04-19 18:12] LABS: ACT PARTIAL THROMBO TIME 27.6 SECONDS (20.0-32.1)
[2023-04-19 18:24] LABS: ALKALINE PHOSPHATASE 132 U/L (46-116); BUN 11 mg/dl (9-23); CHLORIDE 104 mmol/L (98-107); LIPASE 30 U/L (12-53); POTASSIUM 3.8 mmol/L (3.4-5.1); SGPT/ALT 12 U/L (10-49); TOTAL PROTEIN 6.7 gm/dL (6.0-8.0)
[2023-04-19 18:29] LABS: BILIRUBIN Negative (Negative); BLOOD Negative (Negative); CLARITY Clear (Clear); COLOR Yellow (Yellow); GLUCOSE Negative (Negative); KETONE Negative (Negative); LEUKO ESTERASE 2+ (Negative); NITRITE Negative (Negative); SPECIFIC GRAVITY <= 1.005 (1.001-1.030); UROBILINOGEN 0.2 E.U./dl (0.0-1.0)
[2023-04-19 18:37] LABS: BACTERIA 3+; EPITHELIAL CELLS 0-2; RBC 0-2 rbc/hpf (0-2)
[2023-04-19 23:50] VITALS: BP 140/63
[2023-04-20] MEDS ORDERED: LISINOPRIL40 MG PO (00:44)
[2023-04-20] MEDS ORDERED: AMLODIPINE BESYL5 MG PO (00:45)
[2023-04-20] MEDS ORDERED: DILTIAZEM HYDR120 M2 PO (00:46)
[2023-04-20] MEDS ORDERED: METOPROLOL SUCC25 M2 PO (00:47)
[2023-04-20 06:20] LABS: BASO # 0.1 10*3/uL (0.0-0.1); EOS # 0.3 10*3/uL (0.0-0.4); EOS % 3.5 % (1.0-4.0); HEMATOCRIT 38.7 % (37.0-47.0); LYMPH # 2.9 10*3/uL (1.3-4.4); LYMPH % 31.7 % (27.0-41.0); MEAN CORPUSCULAR HGB 31.1 pg (27.0-31.0); MEAN PLATELET VOLUME 9.6 fl (9.6-12.3); MONO # 0.8 10*3/uL (0.1-1.0); MONO % 8.2 % (3.0-9.0); NEUT # 5.1 10*3/uL (2.3-7.9); NEUT % 55.4 % (47.0-73.0); PLATELET COUNT AUTOMATED 320 10*3/uL (130-400); RED BLOOD COUNT 3.99 10*6/uL (4.10-5.10); RED CELL DISTRI WIDTH 13.7 % (0-14.5); WHITE BLOOD COUNT 9.2 10*3/uL (4.8-10.8)
[2023-04-20 06:39] LABS: ALKALINE PHOSPHATASE 124 U/L (46-116); BUN 6 mg/dl (9-23); CHLORIDE 109 mmol/L (98-107); FREE T4 1.09 ng/dl (0.89-1.76); POTASSIUM 4.1 mmol/L (3.4-5.1); SGPT/ALT 10 U/L (10-49); THYROID STIM HORMONE (HS) 1.747 uIU/ml (0.550-4.780); TOTAL PROTEIN 6.2 gm/dL (6.0-8.0)
[2023-04-20 08:00] VITALS: BP 148/65
[2023-04-20 08:17] LABS: VITAMIN D, 25-HYDROXY 59.1 ng/mL (30-100)
[2023-04-20] MEDS ORDERED: HYDROMET SYRUP473 ML PO (09:55)
[2023-04-20 12:00] VITALS: BP 134/62
[2023-04-20 16:00] VITALS: BP 143/61
[2023-04-20 20:00] VITALS: BP 115/55
[2023-04-21] VITALS: BP 108/76
[2023-04-21 06:43] LABS: BUN 9 mg/dl (9-23); CHLORIDE 108 mmol/L (98-107); POTASSIUM 4.4 mmol/L (3.4-5.1)
[2023-04-21 08:00] VITALS: BP 129/50
[2023-04-21] MEDS ORDERED: OMNICEF300 MG PO ×3 (11:24→13:04)
[2023-04-21 12:00] VITALS: BP 143/76
== END 2023-04-21 13:42 | disposition home or self-care (01) | DRG 689 ==
LOC: ED 16:49 → EDHOLD 18:58 → 4E 18:58
PROVIDERS: Emergency Medicine; Family Medicine; Student in an Organized Health Care Education/Training Program; ADMIT Internal Medicine; ATTEND Internal Medicine
DX: N30.00 Acute cystitis without hematuria (principal); G93.41 Metabolic encephalopathy; K21.9 Gastro-esophageal reflux disease without esophagitis; I48.0 Paroxysmal atrial fibrillation; F41.9 Anxiety disorder, unspecified; I10 Essential (primary) hypertension; E78.5 Hyperlipidemia, unspecified; J44.9 Chronic obstructive pulmonary disease, unspecified; E03.9 Hypothyroidism, unspecified; M19.90 Unspecified osteoarthritis, unspecified site; E55.9 Vitamin D deficiency, unspecified; Z90.710 Acquired absence of both cervix and uterus; Z87.891 Personal history of nicotine dependence; Z98.51 Tubal ligation status; Z82.5 Family history of asthma and other chronic lower respiratory diseases; Z79.51 Long term (current) use of inhaled steroids; Z79.84 Long term (current) use of oral hypoglycemic drugs; Z79.899 Other long term (current) drug therapy; Z80.41 Family history of malignant neoplasm of ovary; Z82.49 Family history of ischemic heart disease and other diseases of the circulatory system

== ENCOUNTER → 2023-05-12 | Outpatient (CLI) | payer OTHER ==
[~2023-05-12] MED LIST changes: +AMLODIPINE BESYL5 MG PO; +DILTIAZEM HYDR120 M2 PO; +HYDROMET SYRUP473 ML PO; +LISINOPRIL40 MG PO; +METOPROLOL SUCC25 M2 PO; +OMNICEF300 MG PO
[2023-05-12 08:11] LABS: BASO # 0.1 10*3/uL (0.0-0.1); BASO % 0.7 % (0.0-1.0); EOS # 0.2 10*3/uL (0.0-0.4); HEMATOCRIT 39.9 % (37.0-47.0); LYMPH # 3.4 10*3/uL (1.3-4.4); LYMPH % 28.8 % (27.0-41.0); MEAN CORPUSCULAR HGB 31.7 pg (27.0-31.0); MEAN CORPUSCULAR HGB CONC 32.3 g/dl (33.0-37.0); MEAN PLATELET VOLUME 9.1 fl (9.6-12.3); MONO % 8.4 % (3.0-9.0); NEUT % 59.6 % (47.0-73.0); PLATELET COUNT AUTOMATED 326 10*3/uL (130-400); RED BLOOD COUNT 4.07 10*6/uL (4.10-5.10); RED CELL DISTRI WIDTH 13.6 % (0-14.5); WHITE BLOOD COUNT 11.7 10*3/uL (4.8-10.8)
[2023-05-12 08:36] LABS: ALKALINE PHOSPHATASE 117 U/L (46-116); BUN 8 mg/dl (9-23); CHLORIDE 109 mmol/L (98-107); CHOLESTEROL 163 mg/dL (<200); LDL CHOLESTEROL 92 mg/dL (9-159); SGPT/ALT 8 U/L (10-49); TOTAL PROTEIN 6.4 gm/dL (6.0-8.0); TRIGLYCERIDES 64 mg/dl (<150)
== END | disposition home or self-care (01) ==
LOC: LAB 07:56
PROVIDERS: ATTEND Nurse Practitioner Family
DX: J44.1 Chronic obstructive pulmonary disease with (acute) exacerbation (principal); K21.9 Gastro-esophageal reflux disease without esophagitis; E03.9 Hypothyroidism, unspecified; I10 Essential (primary) hypertension; E78.5 Hyperlipidemia, unspecified

== ENCOUNTER 2023-06-15 14:23 | Emergency (ER) | payer OTHER ==
[2023-06-15 15:32] LABS: BASO # 0.1 10*3/uL (0.0-0.1); BASO % 0.4 % (0.0-1.0); EOS # 0.1 10*3/uL (0.0-0.4); EOS % 0.7 % (1.0-4.0); HEMATOCRIT 46.6 % (37.0-47.0); LYMPH # 2.3 10*3/uL (1.3-4.4); MEAN CELL VOLUME 96.7 fl (81.0-99.0); MEAN CORPUSCULAR HGB 32.2 pg (27.0-31.0); MEAN CORPUSCULAR HGB CONC 33.3 g/dl (33.0-37.0); MEAN PLATELET VOLUME 9.4 fl (9.6-12.3); MONO % 8.4 % (3.0-9.0); NEUT # 8.2 10*3/uL (2.3-7.9); NEUT % 70.2 % (47.0-73.0); PLATELET COUNT AUTOMATED 360 10*3/uL (130-400); RED BLOOD COUNT 4.82 10*6/uL (4.10-5.10); RED CELL DISTRI WIDTH 13.5 % (0-14.5); WHITE BLOOD COUNT 11.6 10*3/uL (4.8-10.8)
[2023-06-15 15:48] LABS: ALKALINE PHOSPHATASE 155 U/L (46-116); BUN 6 mg/dl (9-23); CHLORIDE 105 mmol/L (98-107); POTASSIUM 3.4 mmol/L (3.4-5.1); SGPT/ALT 10 U/L (10-49); TOTAL PROTEIN 7.2 gm/dL (6.0-8.0)
[2023-06-15 16:46] LABS: BILIRUBIN Negative (Negative); BLOOD Negative (Negative); CLARITY Clear (Clear); COLOR Yellow (Yellow); GLUCOSE Negative (Negative); KETONE Trace (Negative); LEUKO ESTERASE Negative (Negative); NITRITE Negative (Negative); PH 7.5 (4.5-8.0); SPECIFIC GRAVITY <= 1.005 (1.001-1.030)
[2023-06-15 16:58] VITALS: BP 134/72
[2023-06-15 17:26] LABS: BACTERIA 1+; EPITHELIAL CELLS 0-2; WBC 0-2 wbc/hpf (0-5)
[2023-06-15] MEDS ORDERED: PROMETHAZINE12.5 M3 PO (17:43)
== END 2023-06-15 17:50 | disposition home or self-care (01) ==
LOC: ED 14:23
PROVIDERS: Student in an Organized Health Care Education/Training Program
DX: B34.9 Viral infection, unspecified (principal); I10 Essential (primary) hypertension; K21.9 Gastro-esophageal reflux disease without esophagitis; J44.9 Chronic obstructive pulmonary disease, unspecified; F41.9 Anxiety disorder, unspecified; M19.90 Unspecified osteoarthritis, unspecified site; E78.00 Pure hypercholesterolemia, unspecified; Z90.710 Acquired absence of both cervix and uterus; Z98.51 Tubal ligation status; Z98.890 Other specified postprocedural states; Z98.49 Cataract extraction status, unspecified eye; Z87.891 Personal history of nicotine dependence

== ENCOUNTER → 2023-08-20 | Outpatient (CLI) | payer MEDICARE ==
[~2023-08-20] MED LIST changes: +PROMETHAZINE12.5 M3 PO
[2023-08-20 11:20] LABS: BASO # 0.1 10*3/uL (0.0-0.1); BASO % 0.8 % (0.0-1.0); EOS # 0.4 10*3/uL (0.0-0.4); EOS % 3.4 % (1.0-4.0); HEMATOCRIT 39.7 % (37.0-47.0); LYMPH # 3.3 10*3/uL (1.3-4.4); LYMPH % 31.3 % (27.0-41.0); MEAN CELL VOLUME 100.3 fl (81.0-99.0); MEAN CORPUSCULAR HGB 31.8 pg (27.0-31.0); MEAN CORPUSCULAR HGB CONC 31.7 g/dl (33.0-37.0); MEAN PLATELET VOLUME 9.4 fl (9.6-12.3); MONO # 0.9 10*3/uL (0.1-1.0); MONO % 8.6 % (3.0-9.0); NEUT # 5.8 10*3/uL (2.3-7.9); NEUT % 55.4 % (47.0-73.0); PLATELET COUNT AUTOMATED 358 10*3/uL (130-400); RED BLOOD COUNT 3.96 10*6/uL (4.10-5.10); RED CELL DISTRI WIDTH 12.7 % (0-14.5); WHITE BLOOD COUNT 10.4 10*3/uL (4.8-10.8)
[2023-08-20 11:55] LABS: ALKALINE PHOSPHATASE 129 U/L (46-116); BUN 10 mg/dl (9-23); CHLORIDE 107 mmol/L (98-107); CHOLESTEROL 167 mg/dL (<200); LDL CHOLESTEROL 102 mg/dL (9-159); POTASSIUM 3.7 mmol/L (3.4-5.1); SGPT/ALT < 7 U/L (5-49); TOTAL PROTEIN 6.9 gm/dL (6.0-8.0); TRIGLYCERIDES 82 mg/dl (<150)
== END | disposition home or self-care (01) ==
LOC: LAB 10:49
PROVIDERS: ATTEND Nurse Practitioner Family
DX: J44.9 Chronic obstructive pulmonary disease, unspecified (principal); I10 Essential (primary) hypertension; L50.9 Urticaria, unspecified; E03.9 Hypothyroidism, unspecified; E78.5 Hyperlipidemia, unspecified; J44.1 Chronic obstructive pulmonary disease with (acute) exacerbation; K21.9 Gastro-esophageal reflux disease without esophagitis

== ENCOUNTER → 2023-09-03 | Outpatient (CLI) | payer MEDICARE | END | disposition home or self-care (01) | LOC: CT 00:32 | PROVIDERS: ATTEND Nurse Practitioner Primary Care | DX: I67.82 Cerebral ischemia (principal); L72.9 Follicular cyst of the skin and subcutaneous tissue, unspecified ==

== ENCOUNTER → 2023-11-25 | Outpatient (CLI) | payer MEDICARE ==
[2023-11-25 12:11] LABS: BASO # 0.1 10*3/uL (0.0-0.1); BASO % 0.9 % (0.0-1.0); EOS # 0.3 10*3/uL (0.0-0.4); EOS % 3.5 % (1.0-4.0); HEMATOCRIT 41.1 % (37.0-47.0); LYMPH # 3.3 10*3/uL (1.3-4.4); LYMPH % 33.3 % (27.0-41.0); MEAN CELL VOLUME 97.6 fl (81.0-99.0); MEAN CORPUSCULAR HGB 30.9 pg (27.0-31.0); MEAN CORPUSCULAR HGB CONC 31.6 g/dl (33.0-37.0); MEAN PLATELET VOLUME 9.3 fl (9.6-12.3); MONO # 1.1 10*3/uL (0.1-1.0); NEUT % 50.7 % (47.0-73.0); PLATELET COUNT AUTOMATED 365 10*3/uL (130-400); RED BLOOD COUNT 4.21 10*6/uL (4.10-5.10); RED CELL DISTRI WIDTH 13.6 % (0-14.5); WHITE BLOOD COUNT 9.8 10*3/uL (4.8-10.8)
[2023-11-25 12:49] LABS: ALKALINE PHOSPHATASE 121 U/L (46-116); BUN 8 mg/dl (9-23); CHLORIDE 108 mmol/L (98-107); CHOLESTEROL 187 mg/dL (<200); LDL CHOLESTEROL 107 mg/dL (9-159); SGPT/ALT 9 U/L (5-49); TOTAL PROTEIN 7.1 gm/dL (6.0-8.0); TRIGLYCERIDES 123 mg/dl (<150)
== END | disposition home or self-care (01) ==
LOC: LAB 11:43
PROVIDERS: ATTEND Nurse Practitioner Family
DX: I10 Essential (primary) hypertension (principal); F41.9 Anxiety disorder, unspecified

== ENCOUNTER 2023-12-28 14:31 | Emergency (ER) | payer MEDICARE ==
[~2023-12-28] VITALS: Ht 154.9 cm; Wt 72.6 kg
[2023-12-28 14:44] VITALS: BP 100/75
[2023-12-28] MEDS ORDERED: Albuterol Sulf/Ipratropium 3 ML VIAL NEB ONE (15:20)
[2023-12-28 15:36] LABS: HEMATOCRIT 44.7 % (37.0-47.0); MEAN CELL VOLUME 95.9 fl (81.0-99.0); MEAN CORPUSCULAR HGB 30.7 pg (27.0-31.0); MEAN PLATELET VOLUME 9.1 fl (9.6-12.3); PLATELET COUNT AUTOMATED 379 10*3/uL (130-400); RED BLOOD COUNT 4.66 10*6/uL (4.10-5.10); RED CELL DISTRI WIDTH 14.2 % (0-14.5); WHITE BLOOD COUNT 15.1 10*3/uL (4.8-10.8)
[2023-12-28 15:49] LABS: MANUAL DIFF REFLEX YES
[2023-12-28 15:55] LABS: BUN 16 mg/dl (9-23); CHLORIDE 101 mmol/L (98-107); POTASSIUM 4.6 mmol/L (3.4-5.1)
[2023-12-28 16:06] LABS: ATYPICAL LYMPHS 3 % (0-0); BASOPHILS 1 % (0-1); TOTAL CELLS COUNTED 100 #CELLS
[2023-12-28 16:07] LABS: PLATELET SUFFICIENCY NORMAL (NORMAL)
[2023-12-28] MEDS ORDERED: Ipratropium Brom3 ML INH (17:05)
[2023-12-28] MEDS ORDERED: predniSONE 20 MG TAB PO ONE (17:05)
[2023-12-28] MEDS ORDERED: PREDNISONE10 MG PO (17:05)
== END 2023-12-28 17:23 | disposition home or self-care (01) ==
LOC: ED 14:31
PROVIDERS: Student in an Organized Health Care Education/Training Program
DX: J45.901 Unspecified asthma with (acute) exacerbation (principal); I10 Essential (primary) hypertension; K21.9 Gastro-esophageal reflux disease without esophagitis; J44.9 Chronic obstructive pulmonary disease, unspecified; F41.9 Anxiety disorder, unspecified; E78.00 Pure hypercholesterolemia, unspecified; M19.90 Unspecified osteoarthritis, unspecified site; Z98.51 Tubal ligation status; Z90.710 Acquired absence of both cervix and uterus; Z98.890 Other specified postprocedural states; Z87.891 Personal history of nicotine dependence

== ENCOUNTER 2024-01-14 05:48 | Inpatient (IN) | payer MEDICARE ==
[~2024-01-14] VITALS: Ht 154.9 cm; Wt 75.3 kg
[~2024-01-14 05:48] MED LIST changes: +Ipratropium Brom3 ML INH
[2024-01-14 05:57] VITALS: BP 135/76
[2024-01-14] MEDS ORDERED: SODIUM CHLORIDE 0.9% 1,000 ML IV ONE ×2 (06:10→06:18)
[2024-01-14] MEDS ORDERED: Ondansetron Hydrochloride 4 MG/2 ML VIAL IV ONE (06:10)
[2024-01-14 06:46] LABS: BASO % 0.3 % (0.0-1.0); EOS # 0.1 10*3/uL (0.0-0.4); EOS % 0.6 % (1.0-4.0); HEMATOCRIT 41.2 % (37.0-47.0); LYMPH # 1.1 10*3/uL (1.3-4.4); LYMPH % 7.3 % (27.0-41.0); MEAN CELL VOLUME 98.1 fl (81.0-99.0); MEAN CORPUSCULAR HGB CONC 31.6 g/dl (33.0-37.0); MEAN PLATELET VOLUME 8.9 fl (9.6-12.3); MONO # 0.5 10*3/uL (0.1-1.0); MONO % 3.1 % (3.0-9.0); NEUT # 13.6 10*3/uL (2.3-7.9); NEUT % 87.9 % (47.0-73.0); PLATELET COUNT AUTOMATED 260 10*3/uL (130-400); RED CELL DISTRI WIDTH 14.1 % (0-14.5); WHITE BLOOD COUNT 15.4 10*3/uL (4.8-10.8)
[2024-01-14 07:09] LABS: ALKALINE PHOSPHATASE 111 U/L (46-116); BUN 11 mg/dl (9-23); CHLORIDE 101 mmol/L (98-107); LIPASE 22 U/L (12-53); POTASSIUM 4.1 mmol/L (3.4-5.1); SGPT/ALT 17 U/L (5-49); TOTAL PROTEIN 6.3 gm/dL (6.0-8.0)
[2024-01-14] MEDS ORDERED: Promethazine Hydrochloride 25 MG/ML VIAL IV ONE (07:50)
[2024-01-14] MEDS ORDERED: ZOLOFT25 MG PO (08:42)
[2024-01-14] MEDS ORDERED: GABAPENTIN ER600 MG PO (08:42)
[2024-01-14] MEDS ORDERED: LEVOTHYROXINE75 MCG PO (08:44)
[2024-01-14] MEDS ORDERED: UNITHROID75 MCG PO (08:48)
[2024-01-14 08:49] VITALS: BP 113/74
[2024-01-14] MEDS ORDERED: Ondansetron Hydrochloride 4 MG/2 ML VIAL IV PRN (09:50)
[2024-01-14] MEDS ORDERED: Lactated Ringer's Solution 1,000 ML IV SCH (09:50)
[2024-01-14] MEDS ORDERED: ACETAMINOPHEN 650 MG SUPP R PRN (09:50)
[2024-01-14] MEDS ORDERED: MORPHINE Sulfate 2 MG/ML SYR IV PRN (09:50)
[2024-01-14] MEDS ORDERED: Lidocaine Hydrochloride 15 ML UDC PO ONE (09:55)
[2024-01-14] MEDS ORDERED: Enoxaparin Sodium 40 MG/0.4 ML SYR SC SCH (10:00)
[2024-01-14] MEDS ORDERED: [UNRECOGNIZED DRUG - OTHER] T ONE (10:05)
[2024-01-14 12:00] VITALS: BP 128/98
[2024-01-14 16:00] VITALS: BP 116/55
[2024-01-14] MEDS ORDERED: Prochlorperazine Edisylate 10 MG/2 ML VIAL IV ONE (17:20)
[2024-01-14 20:00] VITALS: BP 117/65
[2024-01-14] MEDS ORDERED: MORPHINE Sulfate 2 MG/ML SYR IV ONE (20:00)
[2024-01-14] MEDS ORDERED: DIAZEPAM 10 MG/2 ML SYR IV ONE (20:15)
[2024-01-14] MEDS ORDERED: Prochlorperazine Edisylate 10 MG/2 ML VIAL IM ONE (21:30)
[2024-01-15] VITALS: BP 129/60
[2024-01-15] MEDS ORDERED: Magnesium Hydroxide 30 ML UDC NG SCH (01:05)
[2024-01-15 06:03] LABS: BUN 12 mg/dl (9-23); CHLORIDE 106 mmol/L (98-107); POTASSIUM 3.5 mmol/L (3.4-5.1)
[2024-01-15 06:10] LABS: BASO # 0.1 10*3/uL (0.0-0.1); BASO % 0.4 % (0.0-1.0); EOS # 0.1 10*3/uL (0.0-0.4); EOS % 0.8 % (1.0-4.0); HEMATOCRIT 42.5 % (37.0-47.0); LYMPH % 21.2 % (27.0-41.0); MEAN CORPUSCULAR HGB 31.1 pg (27.0-31.0); MEAN PLATELET VOLUME 9.3 fl (9.6-12.3); MONO # 1.3 10*3/uL (0.1-1.0); MONO % 9.2 % (3.0-9.0); NEUT # 9.7 10*3/uL (2.3-7.9); NEUT % 67.8 % (47.0-73.0); PLATELET COUNT AUTOMATED 294 10*3/uL (130-400); RED BLOOD COUNT 4.38 10*6/uL (4.10-5.10); RED CELL DISTRI WIDTH 14.4 % (0-14.5); WHITE BLOOD COUNT 14.2 10*3/uL (4.8-10.8)
[2024-01-15 08:00] VITALS: BP 105/57
[2024-01-15 12:00] VITALS: BP 134/65
[2024-01-15 15:48] VITALS: BP 114/70
[2024-01-15] MEDS ORDERED: DOCUSATE SODIUM 100 MG CAP PO SCH (18:00)
[2024-01-15] MEDS ORDERED: Albuterol Sulfate 2.5 MG/3 ML VIAL NEB SCH (19:50)
[2024-01-15] MEDS ORDERED: BUDESONIDE 0.5 MG AMP NEB SCH (19:50)
[2024-01-15 20:00] VITALS: BP 112/64
[2024-01-15] MEDS ORDERED: PREPARATION H SRF/SHARK LIVER 1 OZ TUBE R PRN (20:00)
[2024-01-15] MEDS ORDERED: hydrOXYzine pamoate 25 MG CAP PO ONE (20:30)
[2024-01-16] VITALS: BP 99/54
[2024-01-16] MEDS ORDERED: Levothyroxine Sodium 75 MCG TAB PO SCH (06:00)
[2024-01-16 06:22] LABS: BASO % 0.4 % (0.0-1.0); EOS # 0.5 10*3/uL (0.0-0.4); EOS % 4.2 % (1.0-4.0); HEMATOCRIT 41.3 % (37.0-47.0); LYMPH # 3.4 10*3/uL (1.3-4.4); LYMPH % 30.4 % (27.0-41.0); MEAN CELL VOLUME 97.9 fl (81.0-99.0); MEAN CORPUSCULAR HGB 30.8 pg (27.0-31.0); MEAN CORPUSCULAR HGB CONC 31.5 g/dl (33.0-37.0); MEAN PLATELET VOLUME 9.4 fl (9.6-12.3); MONO % 9.4 % (3.0-9.0); NEUT # 6.1 10*3/uL (2.3-7.9); NEUT % 54.9 % (47.0-73.0); PLATELET COUNT AUTOMATED 261 10*3/uL (130-400); RED BLOOD COUNT 4.22 10*6/uL (4.10-5.10); RED CELL DISTRI WIDTH 14.5 % (0-14.5); WHITE BLOOD COUNT 11.1 10*3/uL (4.8-10.8)
[2024-01-16 06:37] LABS: BUN 7 mg/dl (9-23); CHLORIDE 109 mmol/L (98-107); POTASSIUM 3.3 mmol/L (3.4-5.1)
[2024-01-16 08:00] VITALS: BP 100/59
[2024-01-16] MEDS ORDERED: POTASSIUM CHLORIDE 20 MEQ TAB PO ONE (08:15)
[2024-01-16] MEDS ORDERED: METOPROLOL SUCCINATE XR 25 MG TAB PO SCH (10:00)
[2024-01-16] MEDS ORDERED: Sertraline Hydrochloride 50 MG TAB PO SCH (10:00)
[2024-01-16] MEDS ORDERED: DILTIAZEM CD 120 MG CAP PO SCH (10:00)
[2024-01-16] MEDS ORDERED: Montelukast Sodium 10 MG TAB PO SCH (10:00)
[2024-01-16] MEDS ORDERED: amLODIPine besylate 5 MG TAB PO SCH (10:00)
[2024-01-16] MEDS ORDERED: ATORVASTATIN CALCIUM 10 MG TAB PO SCH (10:00)
[2024-01-16] MEDS ORDERED: GABAPENTIN 600 MG TAB PO SCH (10:00)
[2024-01-16] MEDS ORDERED: LISINOPRIL 40 MG TAB PO SCH (10:00)
[2024-01-16] MEDS ORDERED: Fluticasone Propionate/Salmeterol 250/50 diskus INH SCH (10:00)
[2024-01-16 12:00] VITALS: BP 122/73
[2024-01-16] MEDS ORDERED: METAMUCIL FIBE3.4 GM PO (13:28)
== END 2024-01-16 16:57 | disposition home or self-care (01) | DRG 389 ==
LOC: ED 05:48 → EDHOLD 08:01 → 4E 08:01 → EDHOLD 08:02 → 4E 08:14
PROVIDERS: Internal Medicine; ADMIT Internal Medicine; ATTEND Internal Medicine
PROC: 0D9670Z Drainage of Stomach with Drainage Device, Via Natural or Artificial Opening (ICD-10-PCS; principal; 2024-01-14)
DX: K56.609 Unspecified intestinal obstruction, unspecified as to partial versus complete obstruction (principal); E44.0 Moderate protein-calorie malnutrition; R65.10 Systemic inflammatory response syndrome (SIRS) of non-infectious origin without acute organ dysfunction; E87.1 Hypo-osmolality and hyponatremia; R73.9 Hyperglycemia, unspecified; D72.825 Bandemia; I10 Essential (primary) hypertension; J45.30 Mild persistent asthma, uncomplicated; F43.89 Other reactions to severe stress; K21.9 Gastro-esophageal reflux disease without esophagitis; G62.9 Polyneuropathy, unspecified; E55.9 Vitamin D deficiency, unspecified; I48.0 Paroxysmal atrial fibrillation; E03.9 Hypothyroidism, unspecified; F41.9 Anxiety disorder, unspecified; Z90.710 Acquired absence of both cervix and uterus; Z98.51 Tubal ligation status; Z98.42 Cataract extraction status, left eye; Z98.41 Cataract extraction status, right eye; Z82.49 Family history of ischemic heart disease and other diseases of the circulatory system; Z80.41 Family history of malignant neoplasm of ovary; Z82.5 Family history of asthma and other chronic lower respiratory diseases; Z68.31 Body mass index [BMI] 31.0-31.9, adult

== ENCOUNTER → 2024-01-25 | Outpatient (CLI) | payer MEDICARE ==
[~2024-01-25] MED LIST changes: +GABAPENTIN ER600 MG PO; +LEVOTHYROXINE75 MCG PO; +METAMUCIL FIBE3.4 GM PO; +UNITHROID75 MCG PO; +ZOLOFT25 MG PO
== END | disposition home or self-care (01) ==
LOC: LAB 10:24
PROVIDERS: ATTEND Nurse Practitioner Family
DX: E03.9 Hypothyroidism, unspecified (principal)

== ENCOUNTER 2024-03-30 15:25 | Emergency (ER) | payer MEDICARE ==
[~2024-03-30] VITALS: Ht 157.4 cm; Wt 72.6 kg
[2024-03-30 15:36] VITALS: BP 99/66
[2024-03-30 15:54] LABS: BASO # 0.1 10*3/uL (0.0-0.1); BASO % 0.6 % (0.0-1.0); EOS # 0.2 10*3/uL (0.0-0.4); EOS % 2.1 % (1.0-4.0); HEMATOCRIT 40.8 % (37.0-47.0); LYMPH # 2.4 10*3/uL (1.3-4.4); LYMPH % 25.8 % (27.0-41.0); MEAN CELL VOLUME 97.6 fl (81.0-99.0); MEAN CORPUSCULAR HGB 31.3 pg (27.0-31.0); MEAN CORPUSCULAR HGB CONC 32.1 g/dl (33.0-37.0); MEAN PLATELET VOLUME 8.9 fl (9.6-12.3); MONO # 0.8 10*3/uL (0.1-1.0); MONO % 8.3 % (3.0-9.0); PLATELET COUNT AUTOMATED 366 10*3/uL (130-400); RED BLOOD COUNT 4.18 10*6/uL (4.10-5.10); RED CELL DISTRI WIDTH 12.8 % (0-14.5); WHITE BLOOD COUNT 9.5 10*3/uL (4.8-10.8)
[2024-03-30] MEDS ORDERED: diphenhydrAMINE hydrochloride 50 MG/ML VIAL IV ONE (16:05)
[2024-03-30] MEDS ORDERED: Ondansetron Hydrochloride 4 MG/2 ML VIAL IV ONE (16:10)
[2024-03-30 16:11] LABS: ALKALINE PHOSPHATASE 121 U/L (46-116); CHLORIDE 105 mmol/L (98-107); LIPASE 35 U/L (12-53); POTASSIUM 3.7 mmol/L (3.4-5.1); SGPT/ALT 8 U/L (5-49); TOTAL PROTEIN 7.1 gm/dL (6.0-8.0)
[2024-03-30 16:29] LABS: BUN < 5 mg/dl (9-23)
[2024-03-30 18:07] LABS: BILIRUBIN Negative (Negative); BLOOD Negative (Negative); CLARITY Clear (Clear); COLOR Yellow (Yellow); GLUCOSE Negative (Negative); KETONE Negative (Negative); LEUKO ESTERASE Negative (Negative); NITRITE Negative (Negative); PH 7.5 (4.5-8.0); SPECIFIC GRAVITY <= 1.005 (1.001-1.030); UROBILINOGEN 0.2 E.U./dl (0.0-1.0)
[2024-03-30 18:15] LABS: WBC 0-2 wbc/hpf (0-5)
== END 2024-03-30 18:36 | disposition home or self-care (01) ==
LOC: ED 15:25
PROVIDERS: Physician Assistant Medical
DX: K59.00 Constipation, unspecified (principal); R11.0 Nausea; J45.909 Unspecified asthma, uncomplicated; J44.9 Chronic obstructive pulmonary disease, unspecified; I10 Essential (primary) hypertension; E78.5 Hyperlipidemia, unspecified; K21.9 Gastro-esophageal reflux disease without esophagitis; I48.91 Unspecified atrial fibrillation; F41.9 Anxiety disorder, unspecified; E78.00 Pure hypercholesterolemia, unspecified; M19.90 Unspecified osteoarthritis, unspecified site; Z98.51 Tubal ligation status; Z90.710 Acquired absence of both cervix and uterus; Z98.890 Other specified postprocedural states; Z87.891 Personal history of nicotine dependence

== ENCOUNTER 2024-04-07 01:26 | Emergency (ER) | payer MEDICARE ==
[~2024-04-07] VITALS: Ht 154.9 cm; Wt 74.8 kg
[2024-04-07 01:39] VITALS: BP 122/68
[2024-04-07] MEDS ORDERED: SODIUM CHLORIDE 0.9% 1,000 ML IV ONE ×2 (01:55→04:27)
[2024-04-07] MEDS ORDERED: IOHEXOL 300 MG/ML 100 ML VIAL IV ONE (01:55)
[2024-04-07] MEDS ORDERED: Ondansetron Hydrochloride 4 MG/2 ML VIAL IV ONE (01:55)
[2024-04-07] MEDS ORDERED: IOHEXOL 300 MG/ML 100 ML VIAL ONE (02:08)
[2024-04-07 02:12] LABS: BASO # 0.1 10*3/uL (0.0-0.1); BASO % 0.6 % (0.0-1.0); EOS # 0.2 10*3/uL (0.0-0.4); EOS % 1.8 % (1.0-4.0); HEMATOCRIT 42.9 % (37.0-47.0); LYMPH # 3.4 10*3/uL (1.3-4.4); LYMPH % 26.4 % (27.0-41.0); MEAN CELL VOLUME 93.3 fl (81.0-99.0); MEAN CORPUSCULAR HGB 31.5 pg (27.0-31.0); MEAN CORPUSCULAR HGB CONC 33.8 g/dl (33.0-37.0); MEAN PLATELET VOLUME 9.3 fl (9.6-12.3); MONO # 1.4 10*3/uL (0.1-1.0); MONO % 11.1 % (3.0-9.0); NEUT # 7.6 10*3/uL (2.3-7.9); NEUT % 59.8 % (47.0-73.0); PLATELET COUNT AUTOMATED 418 10*3/uL (130-400); RED CELL DISTRI WIDTH 12.6 % (0-14.5); WHITE BLOOD COUNT 12.8 10*3/uL (4.8-10.8)
[2024-04-07 02:28] LABS: ALKALINE PHOSPHATASE 128 U/L (46-116); BUN 5 mg/dl (9-23); CHLORIDE 97 mmol/L (98-107); LIPASE 24 U/L (12-53); POTASSIUM 2.8 mmol/L (3.4-5.1); SGPT/ALT 9 U/L (5-49); TOTAL PROTEIN 7.1 gm/dL (6.0-8.0)
[2024-04-07 02:44] LABS: BILIRUBIN Negative (Negative); BLOOD Negative (Negative); CLARITY Clear (Clear); COLOR Yellow (Yellow); GLUCOSE Negative (Negative); KETONE Negative (Negative); LEUKO ESTERASE Negative (Negative); NITRITE Negative (Negative); PH 7.5 (4.5-8.0); UROBILINOGEN 0.2 E.U./dl (0.0-1.0)
[2024-04-07] MEDS ORDERED: POTASSIUM CHLORIDE IN WATER 100 ML IV SCH (05:00)
[2024-04-07] MEDS ORDERED: MIRALAX POWDER17 G1 PO (05:02)
[2024-04-07] MEDS ORDERED: ONDANSETRON4 MG SL (05:02)
[2024-04-07] MEDS ORDERED: MAGNESIUM CITRATE 296 ML BOT PO ONE (05:05)
[2024-04-07] MEDS ORDERED: POTASSIUM CHLORIDE 20 MEQ TAB PO ONE (05:20)
== END 2024-04-07 06:52 | disposition home or self-care (01) ==
LOC: ED 01:26
PROVIDERS: Internal Medicine
DX: K59.00 Constipation, unspecified (principal); R11.2 Nausea with vomiting, unspecified; I10 Essential (primary) hypertension; K21.9 Gastro-esophageal reflux disease without esophagitis; J44.9 Chronic obstructive pulmonary disease, unspecified; F41.9 Anxiety disorder, unspecified; M19.90 Unspecified osteoarthritis, unspecified site; E78.00 Pure hypercholesterolemia, unspecified; Z98.51 Tubal ligation status; Z90.710 Acquired absence of both cervix and uterus; Z98.890 Other specified postprocedural states; Z87.891 Personal history of nicotine dependence

== ENCOUNTER → 2024-04-13 | Outpatient (CLI) | payer MEDICARE ==
[~2024-04-13] MED LIST changes: +ONDANSETRON4 MG SL
[2024-04-13 14:51] LABS: ALKALINE PHOSPHATASE 121 U/L (46-116); BUN 7 mg/dl (9-23); CHLORIDE 104 mmol/L (98-107); POTASSIUM 4.2 mmol/L (3.4-5.1); SGPT/ALT 9 U/L (5-49); TOTAL PROTEIN 6.7 gm/dL (6.0-8.0)
== END | disposition home or self-care (01) ==
LOC: LAB 13:43
PROVIDERS: ATTEND Nurse Practitioner Family
DX: E87.6 Hypokalemia (principal); K59.00 Constipation, unspecified

== ENCOUNTER → 2024-04-19 | Outpatient (CLI) | payer MEDICARE | END | disposition home or self-care (01) | LOC: RAD 11:56 | PROVIDERS: ATTEND Nurse Practitioner Family | DX: K59.09 Other constipation (principal); Z90.710 Acquired absence of both cervix and uterus ==

== ENCOUNTER → 2024-05-08 | Outpatient (CLI) | payer MEDICARE | END | disposition home or self-care (01) | LOC: RESCLI 03:10 | PROVIDERS: ATTEND Internal Medicine | DX: E78.2 Mixed hyperlipidemia (principal); I10 Essential (primary) hypertension; J30.9 Allergic rhinitis, unspecified; K21.9 Gastro-esophageal reflux disease without esophagitis; I48.0 Paroxysmal atrial fibrillation; Z90.710 Acquired absence of both cervix and uterus; Z98.890 Other specified postprocedural states; Z79.899 Other long term (current) drug therapy; Z87.891 Personal history of nicotine dependence ==

== ENCOUNTER 2024-06-15 16:50 | Emergency (ER) | payer MEDICARE ==
[~2024-06-15] VITALS: Ht 157.4 cm; Wt 72.6 kg
[2024-06-15] MEDS ORDERED: DIAZEPAM 10 MG/2 ML SYR IV ONE (17:20)
[2024-06-15] MEDS ORDERED: Meclizine Hydrochloride 25 MG TAB PO ONE ×2 (17:20→18:30)
[2024-06-15] MEDS ORDERED: SODIUM CHLORIDE 0.9% 1,000 ML IV ONE ×2 (17:20→18:30)
[2024-06-15] MEDS ORDERED: DELTASONE1 MG PO (17:44)
[2024-06-15] MEDS ORDERED: AIRSUPRA 90-810.7 GM INH (17:48)
[2024-06-15 17:53] LABS: BASO # 0.1 10*3/uL (0.0-0.1); BASO % 0.7 % (0.0-1.0); EOS # 0.1 10*3/uL (0.0-0.4); EOS % 1.4 % (1.0-4.0); HEMATOCRIT 39.4 % (37.0-47.0); LYMPH # 2.1 10*3/uL (1.3-4.4); LYMPH % 21.5 % (27.0-41.0); MEAN CELL VOLUME 93.8 fl (81.0-99.0); MEAN PLATELET VOLUME 9.1 fl (9.6-12.3); MONO # 0.9 10*3/uL (0.1-1.0); MONO % 9.1 % (3.0-9.0); NEUT # 6.6 10*3/uL (2.3-7.9); NEUT % 66.6 % (47.0-73.0); PLATELET COUNT AUTOMATED 323 10*3/uL (130-400); RED CELL DISTRI WIDTH 13.6 % (0-14.5); WHITE BLOOD COUNT 9.8 10*3/uL (4.8-10.8)
[2024-06-15 18:04] LABS: ACT PARTIAL THROMBO TIME 25.1 SECONDS (20.0-32.1)
[2024-06-15 18:09] LABS: POTASSIUM 3.7 mmol/L (3.4-5.1); TOTAL PROTEIN 6.2 gm/dL (6.0-8.0)
[2024-06-15 20:49] VITALS: BP 95/54
== END 2024-06-15 21:46 | disposition home or self-care (01) ==
LOC: ED 16:50
PROVIDERS: Internal Medicine
DX: I95.9 Hypotension, unspecified (principal); E87.1 Hypo-osmolality and hyponatremia; R11.2 Nausea with vomiting, unspecified; I12.9 Hypertensive chronic kidney disease with stage 1 through stage 4 chronic kidney disease, or unspecified chronic kidney disease; N18.31 Chronic kidney disease, stage 3a; K21.9 Gastro-esophageal reflux disease without esophagitis; J44.9 Chronic obstructive pulmonary disease, unspecified; F41.9 Anxiety disorder, unspecified; E78.00 Pure hypercholesterolemia, unspecified; M19.90 Unspecified osteoarthritis, unspecified site; Z90.710 Acquired absence of both cervix and uterus; Z98.51 Tubal ligation status; Z98.890 Other specified postprocedural states; Z87.891 Personal history of nicotine dependence

== ENCOUNTER → 2024-08-09 | Outpatient (CLI) | payer MEDICARE ==
[~2024-08-09] MED LIST changes: +AIRSUPRA 90-810.7 GM INH; +DELTASONE1 MG PO; +DILTIAZEM 24HR180 MG PO; +HYDROXYZINE HCL25 MG PO; +IPRATROPIUM BRO30 M1 NAS; +LATANOPROST2.5 ML OU; -LISINOPRIL40 MG PO; +OMEPRAZOLE40 MG PO; +ONDANSETRON HYDR4 MG PO; +Ventolin 02.5 MG/3 M INH; +ZESTRIL10 MG PO
== END | disposition home or self-care (01) ==
LOC: ORTHO 00:51
PROVIDERS: ATTEND Orthopaedic Surgery
DX: S42.202D Unspecified fracture of upper end of left humerus, subsequent encounter for fracture with routine healing (principal); M19.012 Primary osteoarthritis, left shoulder; M81.0 Age-related osteoporosis without current pathological fracture; X58.XXXD Exposure to other specified factors, subsequent encounter

== ENCOUNTER → 2024-08-25 | Outpatient (CLI) | payer MEDICARE | END | disposition home or self-care (01) | LOC: ORTHO 00:56 | PROVIDERS: ATTEND Orthopaedic Surgery | DX: S42.202D Unspecified fracture of upper end of left humerus, subsequent encounter for fracture with routine healing (principal); M19.012 Primary osteoarthritis, left shoulder; M79.89 Other specified soft tissue disorders; X58.XXXD Exposure to other specified factors, subsequent encounter ==

== ENCOUNTER → 2025-06-18 | Outpatient (CLI) | payer OTHER | END | disposition home or self-care (01) | LOC: CT 01:12 | PROVIDERS: ATTEND Nurse Practitioner Primary Care | DX: I67.82 Cerebral ischemia (principal); R41.3 Other amnesia ==